=== PATIENT | male | born 1950 | race Caucasian/White ===

== ENCOUNTER 2016-10-02 11:22 | Emergency (ER) | payer MEDICARE ==
[2016-10-02 11:53] VITALS: PULSE 60
--- NOTE | 2016-10-02 11:59 | ERPHSYRPT ---
- History of Present Illness Time Seen by Provider: 10/02/16 11:47 Source: patient Exam Limitations: no limitations Physician History: The patient is a 66-year-old male with his complaining of increasing left ear pain for one month. He was recently put on doxycycline without resolution. This morning his left ear is hurting intensely but after removing white material with a Q-tip, it is feeling somewhat better. His past medical history is significant for hypertension, allergies, GERD, and diabetes. Timing/Duration: gradual onset Severity: severe ENT Location: ear (L) Prearrival Treatment: prescription meds Modifying Factors: Improves With: nothing Associated Symptoms: ear pain (L) Allergies/Adverse Reactions: azithromycin [From Zithromax] Adverse Reaction (Verified 04/01/16 11:37) chlorzoxazone Adverse Reaction (Verified 04/01/16 11:37) clarithromycin [From Biaxin] Adverse Reaction (Verified 04/01/16 11:37) diclofenac sodium [From Arthrotec] Adverse Reaction (Verified 04/01/16 11:37) ezetimibe [From Vytorin] Adverse Reaction (Verified 04/01/16 11:37) fluticasone propionate [From Advair Diskus] Adverse Reaction (Verified 04/01/16 11:37) misoprostol [From Arthrotec] Adverse Reaction (Verified 04/01/16 11:37) oxycodone Adverse Reaction (Verified 04/01/16 11:37) Penicillins Adverse Reaction (Verified 04/01/16 11:37) pravastatin sodium [From Pravachol] Adverse Reaction (Verified 04/01/16 11:37) rosuvastatin calcium [From Crestor] Adverse Reaction (Verified 04/01/16 11:37) salmeterol xinafoate [From Advair Diskus] Adverse Reaction (Verified 04/01/16 11 :37) simvastatin [From Vytorin] Adverse Reaction (Verified 04/01/16 11:37) Home Medications: Aspirin 81 gm Chew [Baby Aspirin 81 mg Chew] 81 mg PO DAILY 07/02/15 [ History] Famotidine 20 mg [Pepcid 20 MG] 20 mg PO DAILY 07/02/15 [History] Gabapentin [Neurontin] 300 mg PO QID 07/02/15 [History] Glimepiride 4 mg [Amaryl 4 mg] 4 mg PO BID 07/02/15 [History] Levomefolate/B6/B12/Algal Oil [Metanx Capsule] 1 each PO DAILY 07/02/15 [History ] Loratadine 10 mg [Claritin 10 mg] 10 mg PO DAILY 07/02/15 [History] Metformin HCl 500 mg [Glucophage 500 MG] 500 mg PO BID 07/02/15 [History] Olmesartan/Hydrochlorothiazide [Benicar Hct 40-12.5 mg Tablet] 1 each PO DAILY 07/02/15 [History] Pioglitazone HCl [Actos] 45 mg PO DAILY 07/02/15 [History] Hx Tetanus, Diphtheria Vaccination/Date Given: Yes Hx Influenza Vaccination/Date Given: Yes Hx Pneumococcal Vaccination/Date Given: Yes - Review of Systems Constitutional: No Fever, No Chills Eyes: No Symptoms Ears, Nose, & Throat: Ear Pain Respiratory: No Cough, No Dyspnea Cardiac: No Chest Pain, No Edema, No Syncope Abdominal/Gastrointestinal: No Abdominal Pain, No Nausea, No Vomiting, No Diarrhea Genitourinary Symptoms: No Dysuria Musculoskeletal: No Back Pain, No Neck Pain Skin: No Rash Neurological: No Dizziness, No Focal Weakness, No Sensory Changes Psychological: No Symptoms Endocrine: No Symptoms Hematologic/Lymphatic: No Symptoms Immunological/Allergic: No Symptoms All Other Systems: Reviewed and Negative - Past Medical History Pertinent Past Medical History: Yes Neurological History: No Pertinent History ENT History: No Pertinent History Cardiac History: High Cholesterol, Hypertension, Other Respiratory History: Other Endocrine Medical History: Diabetes Type I Musculoskeletal History: Arthritis GI Medical History: Other History: Other Psycho-Social History: No Pertinent History Male Reproductive Disorders: No Pertinent History Other Medical History: kidney stones, acid reflux, - Past Surgical History Past Surgical History: Yes Neuro Surgical History: No Pertinent History Cardiac: No Pertinent History Respiratory: No Pertinent History Gastrointestinal: No Pertinent History Genitourinary: No Pertinent History Musculoskeletal: No Pertinent History Male Surgical History: No Pertinent History - Social History Smoking Status: Never smoker Exposure to second hand smoke: No Drug Use: none - Physical Exam General Appearance: no apparent distress, alert Ear Exam: left ear: TM red Nasal Exam: normal inspection Throat Exam: pharynx normal, moist mucus membranes, No tonsillar exudate Neck Exam: supple Cardiovascular/Respiratory Exam: normal breath sounds, regular rate/rhythm Abdominal Exam: non-tender, soft Neurologic Exam: alert, oriented x 3, sensation nml, No motor deficits Skin Exam: normal color, warm, dry SpO2 Interpretation: normal - Progress Progress: unchanged - Departure Time of Disposition: 12:02 Departure Disposition: Home Clinical Impression: Otitis media Condition: Stable Critical Care Time: No Additional Instructions: Your left ear has an infection. Stopped taking the doxycycline. Take Omnicef 300 mg twice a day for 10 days. Also take prednisone 1 mg daily for 10 days. If the condition persists, either follow-up with your family doctor or with your [facility] dean. Prescriptions: Cefdinir [Omnicef] 300 mg PO BID #20 capsule Prednisone 10 mg [Deltasone 10 mg] 1 mg PO UD #10 tablet
[2016-10-02 12:27] VITALS: BP 120/54; O2SAT 98
== END 2016-10-02 12:25 | disposition home or self-care (01) ==
LOC: ED 11:22
DX: H66.90 Otitis media, unspecified, unspecified ear (principal)
CPT/HCPCS: 99283

== ENCOUNTER 2018-06-01 09:17 | Day surgery (SDC) | payer MEDICARE ==
[2018-06-01] MEDS ORDERED: Xylocaine-Mpf 2% 5 Ml Vial IJ ONE (09:18)
[2018-06-01] MEDS ORDERED: Depo-Medrol 40 MG/ML IM ONE (09:18)
[2018-06-01] MEDS ORDERED: DIPRIVAN 200 MG/20 ML IV ONE (09:18)
[2018-06-01] MEDS ORDERED: LIDOCAINE HCL 2% 100 MG/5 ML IJ ONE (09:18)
[2018-06-01] MEDS ORDERED: Lactated Ringers 1,000 ML IV ONE (12:03)
--- NOTE | 2018-06-01 12:15 | XRAY ---
Indication: Bilateral L4-S1 DEEPALI. Intraoperative fluoroscopy was provided for 1 minute 35 seconds. 4 digital spot images submitted for interpretation demonstrates posterior spinal needle tips projecting over the expected course of the left and right L4-L5 nerve roots. Small amount of contrast injected for needle tip placement. Correlate with intraoperative findings/report.
--- NOTE | 2018-06-01 12:17 | XRAY ---
1 minute and 35 seconds fluoroscopy time in surgery for bilateral L4-S1 DEEPALI.
== END 2018-06-01 11:23 | disposition home or self-care (01) ==
LOC: SDC-PAIN 09:17
PROVIDERS: ATTEND Psychiatry & Neurology Pain Medicine
DX: M54.16 Radiculopathy, lumbar region (principal); E11.9 Type 2 diabetes mellitus without complications; I10 Essential (primary) hypertension; M19.90 Unspecified osteoarthritis, unspecified site; Z79.899 Other long term (current) drug therapy
CPT/HCPCS: 64483; 64484; 72020; 77003; 82962; 99100; J1030; J2704; Q9966

== ENCOUNTER 2018-07-06 09:18 | Day surgery (SDC) | payer MEDICARE ==
[2018-07-06] MEDS ORDERED: DIPRIVAN 200 MG/20 ML IV ONE (09:19)
[2018-07-06] MEDS ORDERED: Marcaine 0.5% SDV 10 ML IJ ONE (09:19)
[2018-07-06] MEDS ORDERED: Ketamine HCl 50 MG/ML IV ONE (09:19)
[2018-07-06] MEDS ORDERED: Depo-Medrol 40 MG/ML IM ONE (09:19)
[2018-07-06] MEDS ORDERED: Xylocaine 1% Vial 30 ML PF IJ ONE (09:19)
--- NOTE | 2018-07-06 11:55 | XRAY ---
Indication: Left shoulder injection. Intraoperative fluoroscopy was provided for 18 seconds. Single digital spot image submitted for interpretation demonstrates needle tip projecting over the left superior glenohumeral joint. Small amount of contrast injected for needle tip placement. Correlate with intraoperative findings/report.
--- NOTE | 2018-07-06 11:58 | XRAY ---
18 seconds fluoroscopy time in surgery for left shoulder injection.
[2018-07-06] MEDS ORDERED: Lactated Ringers 1,000 ML IV ONE (14:27)
== END 2018-07-06 11:05 | disposition home or self-care (01) ==
LOC: SDC-PAIN 09:18
PROVIDERS: ATTEND Psychiatry & Neurology Pain Medicine
DX: M19.019 Primary osteoarthritis, unspecified shoulder (principal); I10 Essential (primary) hypertension; E11.9 Type 2 diabetes mellitus without complications; Z79.899 Other long term (current) drug therapy
CPT/HCPCS: 73030; 77002; 99100; J1030; J2001; J2704

== ENCOUNTER 2018-07-27 07:56 | Day surgery (SDC) | payer MEDICARE ==
[2018-07-27] MEDS ORDERED: Ketamine HCl 50 MG/ML IJ ONE (07:57)
[2018-07-27] MEDS ORDERED: Marcaine 0.5% SDV 10 ML IJ ONE (07:57)
[2018-07-27] MEDS ORDERED: Depo-Medrol 40 MG/ML IM ONE (07:57)
[2018-07-27] MEDS ORDERED: Sodium Chloride 0.9(Preservative Free) 10 ML IJ ONE (07:57)
[2018-07-27] MEDS ORDERED: DIPRIVAN 200 MG/20 ML IV ONE ×2 (07:57)
--- NOTE | 2018-07-27 10:25 | XRAY ---
Indication: Right L3-L5 DEEPALI. Intraoperative fluoroscopy was provided for 20 seconds. 2 digital spot images submitted for interpretation demonstrates posterior needle tips in the expected course of the right L3 and L4 nerve roots. Small amount of contrast injected for needle tip placement. Correlate with intraoperative findings/report.
--- NOTE | 2018-07-27 10:27 | XRAY ---
15 seconds fluoroscopy time in surgery for right S-I joint injection.
--- NOTE | 2018-07-27 10:27 | XRAY ---
20 seconds fluoroscopy time in surgery for right L3-L5 DEEPALI.
--- NOTE | 2018-07-27 10:28 | XRAY ---
Indication: Right SI joint injection. Intraoperative fluoroscopy was provided for 15 seconds. 2 digital spot images submitted for interpretation demonstrates posterior needle tip projecting over the inferior right SI joint. Correlate with intraoperative findings/report.
[2018-07-27] MEDS ORDERED: Lactated Ringers 1,000 ML IV ONE (18:01)
== END 2018-07-27 09:55 | disposition home or self-care (01) ==
LOC: SDC-PAIN 07:56
PROVIDERS: ATTEND Psychiatry & Neurology Pain Medicine
DX: M54.16 Radiculopathy, lumbar region (principal); M46.1 Sacroiliitis, not elsewhere classified; M53.3 Sacrococcygeal disorders, not elsewhere classified; M19.019 Primary osteoarthritis, unspecified shoulder; Z79.899 Other long term (current) drug therapy; I10 Essential (primary) hypertension; E11.9 Type 2 diabetes mellitus without complications; K20.9 Esophagitis, unspecified; K44.9 Diaphragmatic hernia without obstruction or gangrene
CPT/HCPCS: 64483; 64484; 72020; 77002; 77003; 82962; G0260; 27096; 99100; J1030; J2704; Q9966

== ENCOUNTER 2018-11-23 09:33 | Day surgery (SDC) | payer MEDICARE ==
[2018-11-23] MEDS ORDERED: Xylocaine 1% Vial 30 ML PF IJ ONE (09:34)
[2018-11-23] MEDS ORDERED: Sodium Chloride 0.9(Preservative Free) 10 ML IJ ONE (09:34)
[2018-11-23] MEDS ORDERED: Depo-Medrol 40 MG/ML IM ONE (09:34)
[2018-11-23] MEDS ORDERED: Ketamine HCl 50 MG/ML ONE (10:56)
[2018-11-23] MEDS ORDERED: DIPRIVAN 200 MG/20 ML IV ONE (10:56)
[2018-11-23] MEDS ORDERED: Lactated Ringers 1,000 ML IV ONE (11:16)
--- NOTE | 2018-11-23 15:14 | XRAY ---
17 seconds fluoroscopy time in surgery for L5-S1 lumbar DEEPALI.
--- NOTE | 2018-11-25 10:24 | XRAY ---
Indication: L5-S1 DEEPALI. Intraoperative fluoroscopy was provided for 17 seconds. 2 digital spot images submitted for interpretation demonstrates midline needle tip just posterior to the L5-S1 interspace. Correlate with intraoperative findings/report.
== END 2018-11-23 11:25 | disposition home or self-care (01) ==
LOC: SDC-PAIN 09:33
PROVIDERS: ATTEND Psychiatry & Neurology Pain Medicine
DX: M54.16 Radiculopathy, lumbar region (principal); E11.9 Type 2 diabetes mellitus without complications; I10 Essential (primary) hypertension; K20.9 Esophagitis, unspecified; K44.9 Diaphragmatic hernia without obstruction or gangrene; Z79.899 Other long term (current) drug therapy
CPT/HCPCS: 62323; 72100; 77003; 82962; J1030; J2001; J2704; Q9966

== ENCOUNTER 2018-12-21 08:06 | Day surgery (SDC) | payer MEDICARE ==
[2018-12-21] MEDS ORDERED: Sodium Chloride 0.9(Preservative Free) 10 ML IJ ONE (08:07)
[2018-12-21] MEDS ORDERED: Depo-Medrol 40 MG/ML IM ONE (08:07)
[2018-12-21] MEDS ORDERED: Ketamine HCl 50 MG/ML ONE (09:32)
[2018-12-21] MEDS ORDERED: DIPRIVAN 200 MG/20 ML IV ONE (09:32)
--- NOTE | 2018-12-21 11:39 | XRAY ---
Indication: Bilateral L3-L5 DEEPALI. Intraoperative fluoroscopy was provided for 1 minute 6 seconds. 6 digital spot images submitted for interpretation demonstrates posterior needle tips projecting over the expected course of the left and right L3-L4 and left L5 nerve root. Small amount of contrast injected for needle tip placement. Correlate with intraoperative findings/report.
--- NOTE | 2018-12-21 13:04 | XRAY ---
1 minute and 6 seconds fluoroscopy time in surgery for bilateral L3-L5 DEEPALI.
[2018-12-21] MEDS ORDERED: Lactated Ringers 1,000 ML IV ONE (13:20)
== END 2018-12-21 10:07 | disposition home or self-care (01) ==
LOC: SDC-PAIN 08:06
PROVIDERS: ATTEND Psychiatry & Neurology Pain Medicine
DX: M54.16 Radiculopathy, lumbar region (principal); E11.9 Type 2 diabetes mellitus without complications; I10 Essential (primary) hypertension; K44.9 Diaphragmatic hernia without obstruction or gangrene; K20.9 Esophagitis, unspecified; Z79.899 Other long term (current) drug therapy
CPT/HCPCS: 64483; 64484; 72100; 77003; 82962; 99100; J1030; J2704; Q9966

== ENCOUNTER 2019-02-15 07:58 | Day surgery (SDC) | payer MEDICARE ==
[2019-02-15] MEDS ORDERED: Depo-Medrol 40 MG/ML IM ONE (07:59)
[2019-02-15] MEDS ORDERED: Sodium Chloride 0.9(Preservative Free) 10 ML IJ ONE (07:59)
[2019-02-15] MEDS ORDERED: DIPRIVAN 200 MG/20 ML IV ONE (10:06)
[2019-02-15] MEDS ORDERED: Ketamine HCl 50 MG/ML ONE (10:06)
--- NOTE | 2019-02-15 11:33 | XRAY ---
Indication: Right L3-L5 DEEPALI. Intraoperative fluoroscopy was provided for 26 seconds. 4 digital spot images submitted for interpretation demonstrates posterior needle tips projecting over the expected course of the right L3 and L4 nerve roots. Small amount of contrast injected for needle tip placement. Correlate with intraoperative findings/report.
--- NOTE | 2019-02-15 12:30 | XRAY ---
26 seconds fluoroscopy time in surgery for right L3-L5 DEEPALI.
[2019-02-15] MEDS ORDERED: Lactated Ringers 1,000 ML IV ONE (14:32)
== END 2019-02-15 10:38 | disposition home or self-care (01) ==
LOC: SDC-PAIN 07:58
PROVIDERS: ATTEND Psychiatry & Neurology Pain Medicine
DX: M54.16 Radiculopathy, lumbar region (principal); E11.9 Type 2 diabetes mellitus without complications; I10 Essential (primary) hypertension; K44.9 Diaphragmatic hernia without obstruction or gangrene; K20.9 Esophagitis, unspecified; Z79.899 Other long term (current) drug therapy
CPT/HCPCS: 64483; 64484; 72100; 77003; 82962; 99100; J1030; J2704; Q9966

== ENCOUNTER 2019-10-25 08:13 | Day surgery (SDC) | payer MEDICARE ==
[~2019-10-25 08:13] MED LIST: DIPRIVAN 200 MG/20 ML IV ONE; Ketamine HCl 50 MG/ML ONE
[2019-10-25] MEDS ORDERED: Depo-Medrol 40 MG/ML IM ONE (08:14)
[2019-10-25] MEDS ORDERED: Xylocaine 1% Vial 30 ML PF IJ ONE (08:14)
[2019-10-25] MEDS ORDERED: Sodium Chloride 0.9(Preservative Free) 10 ML IJ ONE (08:14)
--- NOTE | 2019-10-25 10:21 | XRAY ---
Indication: Lumbar DEEPALI. Intraoperative fluoroscopy was provided for 17 seconds. 2 digital spot images submitted for interpretation demonstrates midline posterior needle tip just posterior to the lumbosacral junction interspace. Small amount of contrast injected for needle tip placement. Correlate with intraoperative findings/report.
--- NOTE | 2019-10-25 10:33 | XRAY ---
17 seconds fluoroscopy time in surgery for lumbar DEEPALI.
[2019-10-25] MEDS ORDERED: Lactated Ringers 1,000 ML IV ONE (16:34)
== END 2019-10-25 10:15 | disposition home or self-care (01) ==
LOC: SDC-PAIN 08:13
PROVIDERS: ATTEND Psychiatry & Neurology Pain Medicine
DX: M54.16 Radiculopathy, lumbar region (principal); E11.9 Type 2 diabetes mellitus without complications; I10 Essential (primary) hypertension; K44.9 Diaphragmatic hernia without obstruction or gangrene; K20.9 Esophagitis, unspecified; Z79.899 Other long term (current) drug therapy
CPT/HCPCS: 62323; 72100; 77003; 82962; J1030; J2001; J2704; Q9966

== ENCOUNTER 2019-11-01 08:41 | Day surgery (SDC) | payer MEDICARE ==
[2019-11-01] MEDS ORDERED: Marcaine 0.5% SDV 10 ML IJ ONE (08:42)
[2019-11-01] MEDS ORDERED: Depo-Medrol 40 MG/ML IM ONE (08:42)
[2019-11-01] MEDS ORDERED: Ketamine HCl 50 MG/ML ONE (09:53)
[2019-11-01] MEDS ORDERED: DIPRIVAN 200 MG/20 ML IV ONE (09:53)
--- NOTE | 2019-11-01 11:08 | XRAY ---
Indication: Right shoulder injection. Intraoperative fluoroscopy was provided for 10 seconds. Single digital spot image submitted for interpretation demonstrates anterior needle tip projecting right glenohumeral joint superiorly. Small amount of contrast injected for needle tip placement. Correlate with intraoperative findings/report.
--- NOTE | 2019-11-01 11:49 | XRAY ---
10 seconds of fluoroscopy was used in surgery for a right intra-articular shoulder injection.
[2019-11-01] MEDS ORDERED: Lactated Ringers 1,000 ML IV ONE (15:55)
== END 2019-11-01 10:14 | disposition home or self-care (01) ==
LOC: SDC-PAIN 08:41
PROVIDERS: ATTEND Psychiatry & Neurology Pain Medicine
DX: M19.011 Primary osteoarthritis, right shoulder (principal); E11.9 Type 2 diabetes mellitus without complications; I10 Essential (primary) hypertension; K20.9 Esophagitis, unspecified; K44.9 Diaphragmatic hernia without obstruction or gangrene; M19.90 Unspecified osteoarthritis, unspecified site; Z79.899 Other long term (current) drug therapy
CPT/HCPCS: 20610; 73030; 77002; 82962; J1030; J2704; Q9966

== ENCOUNTER 2019-11-22 09:00 | Day surgery (SDC) | payer MEDICARE ==
[2019-11-22] MEDS ORDERED: Sodium Chloride 0.9(Preservative Free) 10 ML IJ ONE (09:01)
[2019-11-22] MEDS ORDERED: Depo-Medrol 40 MG/ML IM ONE (09:01)
[2019-11-22] MEDS ORDERED: DIPRIVAN 200 MG/20 ML IV ONE (09:58)
[2019-11-22] MEDS ORDERED: Ketamine HCl 50 MG/ML ONE (09:58)
--- NOTE | 2019-11-22 12:01 | XRAY ---
Indication: Right L4-S1 transforaminal DEEPALI. Intraoperative fluoroscopy was provided for 29 seconds. 4 digital spot images submitted for interpretation demonstrates posterior needle tips projecting over the expected course of the right L4 and L5 nerve roots. Small amount of contrast injected for needle tip placement. Correlate with intraoperative findings/report.
--- NOTE | 2019-11-22 12:14 | XRAY ---
29 seconds fluoroscopy time in surgery for right L4-S1 transforaminal DEEPALI.
[2019-11-22] MEDS ORDERED: Lactated Ringers 1,000 ML IV ONE (14:33)
== END 2019-11-22 10:28 | disposition home or self-care (01) ==
LOC: SDC-PAIN 09:00
PROVIDERS: ATTEND Psychiatry & Neurology Pain Medicine
DX: M54.16 Radiculopathy, lumbar region (principal); E11.9 Type 2 diabetes mellitus without complications; I10 Essential (primary) hypertension; K20.9 Esophagitis, unspecified; K44.9 Diaphragmatic hernia without obstruction or gangrene; Z79.899 Other long term (current) drug therapy
CPT/HCPCS: 64483; 64484; 72100; 77003; 82962; 99100; J1030; J2704; Q9966

== ENCOUNTER 2019-12-27 08:52 | Day surgery (SDC) | payer MEDICARE ==
[2019-12-27] MEDS ORDERED: Depo-Medrol 40 MG/ML IM ONE (08:53)
[2019-12-27] MEDS ORDERED: Sodium Chloride 0.9(Preservative Free) 10 ML IJ ONE (08:53)
[2019-12-27] MEDS ORDERED: Ketamine HCl 50 MG/ML ONE (10:30)
[2019-12-27] MEDS ORDERED: DIPRIVAN 200 MG/20 ML IV ONE (10:30)
[2019-12-27] MEDS ORDERED: TORAdol 30 mg Injection ONE (10:51)
--- NOTE | 2019-12-27 12:21 | XRAY ---
Indication: Left L4-S1 transforaminal DEEPALI. Intraoperative fluoroscopy was provided for 51 seconds. 3 digital spot images submitted for interpretation demonstrates posterior needle tips projecting over the expected course of the left L4 and L5 nerve roots. Small amount of contrast injected for needle tip placement. Correlate with intraoperative findings/report.
--- NOTE | 2019-12-27 12:35 | XRAY ---
51 seconds fluoroscopy time in surgery for left L4-S1 transforaminal DEEPALI.
[2019-12-27] MEDS ORDERED: Lactated Ringers 1,000 ML IV ONE (15:29)
== END 2019-12-27 11:05 | disposition home or self-care (01) ==
LOC: SDC-PAIN 08:52
PROVIDERS: ATTEND Psychiatry & Neurology Pain Medicine
DX: M54.16 Radiculopathy, lumbar region (principal); I10 Essential (primary) hypertension; E11.9 Type 2 diabetes mellitus without complications; K44.9 Diaphragmatic hernia without obstruction or gangrene; K20.9 Esophagitis, unspecified; Z79.899 Other long term (current) drug therapy
CPT/HCPCS: 64483; 64484; 72100; 77003; 82962; 99100; J1030; J1885; J2704; Q9966

== ENCOUNTER 2020-02-21 09:11 | Day surgery (SDC) | payer MEDICARE ==
[2020-02-21] MEDS ORDERED: Depo-Medrol 40 MG/ML IM ONE (09:12)
[2020-02-21] MEDS ORDERED: Sodium Chloride 0.9(Preservative Free) 10 ML IJ ONE (09:12)
--- NOTE | 2020-02-21 11:39 | XRAY ---
Indication: Right L3-L5 transforaminal DEEPALI. Intraoperative fluoroscopy was provided for 46 seconds. 4 digital spot images submitted for interpretation demonstrates posterior needle tips projecting over the expected right L3 and L4 nerve roots. Small amount of contrast injected for needle tip placement. Correlate with intraoperative findings/report.
--- NOTE | 2020-02-21 11:48 | XRAY ---
46 seconds fluoroscopy time in surgery for right L3-S1 transforaminal DEEPALI.
[2020-02-21] MEDS ORDERED: Lactated Ringers 1,000 ML IV ONE (16:48)
== END 2020-02-21 11:28 | disposition home or self-care (01) ==
LOC: SDC-PAIN 09:11
PROVIDERS: ATTEND Psychiatry & Neurology Pain Medicine
DX: M54.16 Radiculopathy, lumbar region (principal); E11.9 Type 2 diabetes mellitus without complications; I10 Essential (primary) hypertension; K44.9 Diaphragmatic hernia without obstruction or gangrene; K20.90 Esophagitis, unspecified without bleeding; Z79.899 Other long term (current) drug therapy
CPT/HCPCS: 64483; 64484; 72100; 77003; 82947; 82962; 99100; J1030; J2704; Q9966

== ENCOUNTER 2020-03-13 08:45 | Day surgery (SDC) | payer MEDICARE ==
[2020-03-13] MEDS ORDERED: Depo-Medrol 40 MG/ML IM ONE (08:46)
[2020-03-13] MEDS ORDERED: Sodium Chloride 0.9(Preservative Free) 10 ML IJ ONE (08:46)
[2020-03-13] MEDS ORDERED: DIPRIVAN 200 MG/20 ML IV ONE (10:18)
[2020-03-13] MEDS ORDERED: Ketamine HCl 50 MG/ML ONE (10:18)
--- NOTE | 2020-03-13 11:13 | XRAY ---
Indication: Right L3-L5 transforaminal DEEPALI. Intraoperative fluoroscopy was provided for 49 seconds. 4 digital spot images submitted for interpretation demonstrates posterior needle tips projecting over the expected right L3 and L4 nerve roots. Small amount of contrast injected for needle tip placement. Correlate with intraoperative findings/report.
--- NOTE | 2020-03-13 11:17 | XRAY ---
49 seconds fluoroscopy time in surgery for right L3-L5 transforaminal DEEPALI.
[2020-03-13] MEDS ORDERED: Lactated Ringers 1,000 ML IV ONE (15:41)
== END 2020-03-13 10:50 | disposition home or self-care (01) ==
LOC: SDC-PAIN 08:45
PROVIDERS: ATTEND Psychiatry & Neurology Pain Medicine
DX: M54.16 Radiculopathy, lumbar region (principal); E11.9 Type 2 diabetes mellitus without complications; I10 Essential (primary) hypertension; K44.9 Diaphragmatic hernia without obstruction or gangrene; K20.90 Esophagitis, unspecified without bleeding; Z79.899 Other long term (current) drug therapy
CPT/HCPCS: 64483; 64484; 72100; 77003; 82947; 82962; 99100; J1030; J2704; Q9966

== ENCOUNTER 2020-05-08 08:53 | Day surgery (SDC) | payer MEDICARE ==
[2020-05-08] MEDS ORDERED: Xylocaine 1% Vial 30 ML PF IJ ONE (08:54)
[2020-05-08] MEDS ORDERED: Sensorcaine 0.25% 10 ML IJ ONE (08:54)
[2020-05-08] MEDS ORDERED: Ketamine HCl 50 MG/ML ONE (10:52)
[2020-05-08] MEDS ORDERED: DIPRIVAN 200 MG/20 ML IV ONE (10:52)
--- NOTE | 2020-05-08 12:20 | XRAY ---
51 seconds fluoroscopy time in surgery for left lumbar sympathetic nerve block.
--- NOTE | 2020-05-08 12:22 | XRAY ---
Indication: Left sympathetic nerve block. Intraoperative fluoroscopy was provided for 51 seconds. 5 digital spot images submitted for interpretation demonstrates left posterior needle tip projecting just anterior to a mid lumbar segment, probably L2. Small amount of contrast injected for needle placement. Correlate with intraoperative findings/report.
[2020-05-08] MEDS ORDERED: Lactated Ringers 1,000 ML IV ONE (15:27)
== END 2020-05-08 11:30 | disposition home or self-care (01) ==
LOC: SDC-PAIN 08:53
PROVIDERS: ATTEND Psychiatry & Neurology Pain Medicine
DX: G90.529 Complex regional pain syndrome I of unspecified lower limb (principal); I10 Essential (primary) hypertension; E11.9 Type 2 diabetes mellitus without complications; Z79.899 Other long term (current) drug therapy
CPT/HCPCS: 72100; 77002; 82947; J2001; J2704

== ENCOUNTER 2020-06-05 08:51 | Day surgery (SDC) | payer MEDICARE ==
[2020-06-05] MEDS ORDERED: Depo-Medrol 40 MG/ML IM ONE ×2 (08:52)
[2020-06-05] MEDS ORDERED: BUPIVACAINE 0.5% VIAL IJ ONE ×2 (08:52)
[2020-06-05] MEDS ORDERED: DIPRIVAN 200 MG/20 ML IV ONE (10:03)
[2020-06-05] MEDS ORDERED: Ketamine HCl 50 MG/ML ONE (10:03)
--- NOTE | 2020-06-05 12:54 | XRAY ---
Indication: Bilateral SI joint injection. Intraoperative fluoroscopy was provided for 23 seconds. 4 digital spot images submitted for interpretation demonstrates posterior needle tip projecting over the inferior left and right SI joint. Correlate with intraoperative findings/report.
--- NOTE | 2020-06-05 12:56 | XRAY ---
23 seconds fluoroscopy time in surgery for bilateral injections of the SI joints.
[2020-06-05] MEDS ORDERED: Lactated Ringers 1,000 ML IV ONE (14:04)
== END 2020-06-05 10:53 | disposition home or self-care (01) ==
LOC: SDC-PAIN 08:51
PROVIDERS: ATTEND Psychiatry & Neurology Pain Medicine
DX: M46.1 Sacroiliitis, not elsewhere classified (principal); E11.9 Type 2 diabetes mellitus without complications; I10 Essential (primary) hypertension; K20.90 Esophagitis, unspecified without bleeding; K44.9 Diaphragmatic hernia without obstruction or gangrene; Z79.899 Other long term (current) drug therapy
CPT/HCPCS: 27096; 72202; 77002; 82947; G0260; 99100; J1030; J2704

== ENCOUNTER 2020-06-26 08:44 | Day surgery (SDC) | payer MEDICARE ==
[2020-06-26] MEDS ORDERED: Xylocaine 1% Vial 30 ML PF IJ ONE (08:45)
[2020-06-26] MEDS ORDERED: Sensorcaine 0.25% 10 ML IJ ONE (08:45)
[2020-06-26] MEDS ORDERED: DIPRIVAN 200 MG/20 ML IV ONE (10:15)
[2020-06-26] MEDS ORDERED: Ketamine HCl 50 MG/ML ONE (10:15)
--- NOTE | 2020-06-26 10:58 | XRAY ---
Indication: Right lumbar sympathetic nerve block. Intraoperative fluoroscopy provided for 1 minute 29 seconds. 4 digital spot images submitted for interpretation demonstrates right posterior needle tip projecting just anterior to mid lumbar segment, probably L3. Small amount of contrast injected for needle tip placement. Correlate with intraoperative findings/report.
--- NOTE | 2020-06-26 12:01 | XRAY ---
1 minute and 29 seconds fluoroscopy time in surgery for right lumber sympathetic nerve block.
[2020-06-26] MEDS ORDERED: Lactated Ringers 1,000 ML IV ONE (14:58)
== END 2020-06-26 10:54 | disposition home or self-care (01) ==
LOC: SDC-PAIN 08:44
PROVIDERS: ATTEND Psychiatry & Neurology Pain Medicine
DX: G90.529 Complex regional pain syndrome I of unspecified lower limb (principal); I10 Essential (primary) hypertension; E11.9 Type 2 diabetes mellitus without complications; N20.0 Calculus of kidney; K20.90 Esophagitis, unspecified without bleeding; K44.9 Diaphragmatic hernia without obstruction or gangrene; M19.90 Unspecified osteoarthritis, unspecified site; Z79.899 Other long term (current) drug therapy
CPT/HCPCS: 64520; 72100; 77002; 77003; 82947; 99100; J2001; J2704; Q9966

== ENCOUNTER 2020-07-10 09:31 | Day surgery (SDC) | payer MEDICARE ==
[2020-07-10] MEDS ORDERED: Lactated Ringers 1,000 ML IV ONE (09:32)
[2020-07-10] MEDS ORDERED: Depo-Medrol 40 MG/ML IM ONE (09:32)
[2020-07-10] MEDS ORDERED: Sodium Chloride 0.9(Preservative Free) 10 ML IJ ONE (09:32)
[2020-07-10] MEDS ORDERED: Ketamine HCl 50 MG/ML ONE (10:59)
[2020-07-10] MEDS ORDERED: DIPRIVAN 200 MG/20 ML IV ONE (10:59)
[2020-07-10] MEDS ORDERED: TORAdol 30 mg Injection ONE (11:21)
[2020-07-10] MEDS ORDERED: TORAdol 30 mg Injection IM ONE (11:45)
--- NOTE | 2020-07-10 12:17 | XRAY ---
Indication: Right L4-S1 transforaminal DEEPALI. Intraoperative fluoroscopy provided for 1 minute 2 seconds. 5 digital spot images submitted for interpretation demonstrate posterior needle tips projecting over the expected right L4 and L5 nerve roots. Correlate with intraoperative findings/report.
--- NOTE | 2020-07-10 12:29 | XRAY ---
1 minute and 2 seconds fluoroscopy time in surgery for right L4-S1 tranforaminal DEEPALI.
== END 2020-07-10 11:37 | disposition home or self-care (01) ==
LOC: SDC-PAIN 09:31
PROVIDERS: ATTEND Psychiatry & Neurology Pain Medicine
DX: M54.16 Radiculopathy, lumbar region (principal); E11.9 Type 2 diabetes mellitus without complications; I10 Essential (primary) hypertension; K20.90 Esophagitis, unspecified without bleeding; K44.9 Diaphragmatic hernia without obstruction or gangrene; Z79.899 Other long term (current) drug therapy
CPT/HCPCS: 64483; 64484; 72100; 77003; 82947; J1030; J1885; J2704; Q9966

== ENCOUNTER 2020-07-31 10:01 | Day surgery (SDC) | payer MEDICARE ==
[2020-07-31] MEDS ORDERED: Sodium Chloride 0.9(Preservative Free) 10 ML IJ ONE (10:02)
[2020-07-31] MEDS ORDERED: Depo-Medrol 40 MG/ML IM ONE (10:02)
[2020-07-31] MEDS ORDERED: DIPRIVAN 200 MG/20 ML IV ONE (11:30)
[2020-07-31] MEDS ORDERED: Ketamine HCl 50 MG/ML ONE (11:30)
--- NOTE | 2020-07-31 12:39 | XRAY ---
Indication: Right L3-L5 transforaminal DEEPALI. Intraoperative fluoroscopy was provided for 34 seconds. 5 digital spot image submitted for interpretation demonstrates posterior needle tips projecting over the expected course of the right L3 and L4 nerve roots. Small amount of contrast injected for needle tip placement. Correlate with intraoperative findings/report.
--- NOTE | 2020-07-31 13:22 | XRAY ---
34 seconds fluoroscopy time in surgery for right L3-L5 transforaminal DEEPALI.
[2020-07-31] MEDS ORDERED: Lactated Ringers 1,000 ML IV ONE (13:51)
== END 2020-07-31 11:56 | disposition home or self-care (01) ==
LOC: SDC-PAIN 10:01
PROVIDERS: ATTEND Psychiatry & Neurology Pain Medicine
DX: M54.16 Radiculopathy, lumbar region (principal); E11.9 Type 2 diabetes mellitus without complications; I10 Essential (primary) hypertension; K20.90 Esophagitis, unspecified without bleeding; K44.9 Diaphragmatic hernia without obstruction or gangrene; Z79.899 Other long term (current) drug therapy
CPT/HCPCS: 64483; 64484; 72100; 77003; 82947; J1030; J2704; Q9966

== ENCOUNTER 2020-08-21 09:09 | Day surgery (SDC) | payer MEDICARE ==
[2020-08-21] MEDS ORDERED: Depo-Medrol 40 MG/ML IM ONE (09:10)
[2020-08-21] MEDS ORDERED: Sodium Chloride 0.9(Preservative Free) 10 ML IJ ONE (09:10)
[2020-08-21] MEDS ORDERED: DIPRIVAN 200 MG/20 ML IV ONE (09:58)
--- NOTE | 2020-08-21 16:22 | XRAY ---
1 minute and 4 seconds fluoroscopy time in surgery for right L3-L5 transforaminal DEEPALI.
[2020-08-21] MEDS ORDERED: Lactated Ringers 1,000 ML IV ONE (16:39)
--- NOTE | 2020-08-22 21:42 | XRAY ---
Indication: Right L3-L5 transforaminal DEEPALI. Intraoperative fluoroscopy was provided for 1 minute, 4 seconds. 6 digital spot images submitted for interpretation demonstrate posterior needle tips projected over the expected course of the right L3 and L4 nerve roots. A small amount of contrast has been injected for needle tip placement. Correlate with intraoperative findings/report.
== END 2020-08-21 10:41 | disposition home or self-care (01) ==
LOC: SDC-PAIN 09:09
PROVIDERS: ATTEND Psychiatry & Neurology Pain Medicine
DX: M54.16 Radiculopathy, lumbar region (principal); E11.9 Type 2 diabetes mellitus without complications; I10 Essential (primary) hypertension; K20.90 Esophagitis, unspecified without bleeding; K44.9 Diaphragmatic hernia without obstruction or gangrene; Z79.899 Other long term (current) drug therapy
CPT/HCPCS: 64483; 64484; 72100; 77003; 82947; J1030; J2704; Q9966

== ENCOUNTER 2020-09-04 07:52 | Day surgery (SDC) | payer MEDICARE ==
[2020-09-04] MEDS ORDERED: Sodium Chloride 0.9(Preservative Free) 10 ML IJ ONE (07:53)
[2020-09-04] MEDS ORDERED: Depo-Medrol 40 MG/ML IM ONE (07:53)
[2020-09-04] MEDS ORDERED: DIPRIVAN 200 MG/20 ML IV ONE (09:06)
[2020-09-04] MEDS ORDERED: Lactated Ringers 1,000 ML IV ONE (16:30)
--- NOTE | 2020-09-04 17:39 | XRAY ---
26 seconds fluoroscopy time in surgery for left L4-S1 transforaminal DEEPALI.
== END 2020-09-04 09:37 | disposition home or self-care (01) ==
LOC: SDC-PAIN 07:52
PROVIDERS: ATTEND Psychiatry & Neurology Pain Medicine
DX: M54.16 Radiculopathy, lumbar region (principal); E11.9 Type 2 diabetes mellitus without complications; I10 Essential (primary) hypertension; K44.9 Diaphragmatic hernia without obstruction or gangrene; K20.90 Esophagitis, unspecified without bleeding; Z79.899 Other long term (current) drug therapy
CPT/HCPCS: 64483; 64484; 72100; 77002; 82947; J1030; J2704; Q9966

== ENCOUNTER 2020-09-25 09:02 | Day surgery (SDC) | payer MEDICARE ==
[2020-09-25] MEDS ORDERED: Depo-Medrol 40 MG/ML IM ONE (09:03)
[2020-09-25] MEDS ORDERED: Sodium Chloride 0.9(Preservative Free) 10 ML IJ ONE (09:03)
[2020-09-25] MEDS ORDERED: DIPRIVAN 200 MG/20 ML IV ONE (10:02)
--- NOTE | 2020-09-25 12:18 | XRAY ---
19 seconds fluoroscopy time in surgery for left L3-L5 transforaminal DEEPALI.
--- NOTE | 2020-09-25 12:20 | XRAY ---
Indication: Left L3-L5 transforaminal DEEPALI. Intraoperative fluoroscopy provided for 19 seconds. 4 digital spot images submitted for interpretation demonstrates posterior needle tips projecting over the expected left L3 and L4 nerve roots. Small amount of contrast injected for needle tip placement. Correlate with intraoperative findings/report.
[2020-09-25] MEDS ORDERED: Lactated Ringers 1,000 ML IV ONE (15:54)
== END 2020-09-25 10:41 | disposition home or self-care (01) ==
LOC: SDC-PAIN 09:02
PROVIDERS: ATTEND Psychiatry & Neurology Pain Medicine
DX: M54.16 Radiculopathy, lumbar region (principal); I10 Essential (primary) hypertension; E11.9 Type 2 diabetes mellitus without complications; I73.9 Peripheral vascular disease, unspecified; K20.90 Esophagitis, unspecified without bleeding; Z79.899 Other long term (current) drug therapy
CPT/HCPCS: 64483; 64484; 72100; 77003; 82947; J1030; J2704; Q9966

== ENCOUNTER 2020-11-27 10:13 | Day surgery (SDC) | payer MEDICARE ==
[2020-11-27] MEDS ORDERED: Depo-Medrol 40 MG/ML IM ONE (10:14)
[2020-11-27] MEDS ORDERED: Sodium Chloride 0.9(Preservative Free) 10 ML IJ ONE (10:14)
[2020-11-27] MEDS ORDERED: DIPRIVAN 200 MG/20 ML IV ONE (11:52)
[2020-11-27] MEDS ORDERED: Ketamine HCl 50 MG/ML ONE (11:52)
[2020-11-27] MEDS ORDERED: TORAdol 30 mg Injection ONE (12:11)
[2020-11-27] MEDS ORDERED: Lactated Ringers 1,000 ML IV ONE (15:54)
--- NOTE | 2020-11-28 12:03 | XRAY ---
53 seconds of fluoroscopy was used in surgery for a right L3-L5 transforaminal DEEPALI.
--- NOTE | 2020-12-01 00:01 | XRAY ---
Indication: Right L3-L5 transforaminal DEEPALI. Intraoperative fluoroscopy was provided for 53 seconds. 2 digital spot images submitted for interpretation demonstrate posterior needle tips projected over the expected course of the right L3 and L4 nerve roots. A small amount of contrast has been injected for needle tip placement. Correlate with intraoperative findings/report.
== END 2020-11-27 12:23 | disposition home or self-care (01) ==
LOC: SDC-PAIN 10:13
PROVIDERS: ATTEND Psychiatry & Neurology Pain Medicine
DX: M54.16 Radiculopathy, lumbar region (principal); E11.9 Type 2 diabetes mellitus without complications; Z79.899 Other long term (current) drug therapy
CPT/HCPCS: 64483; 64484; 72100; 77003; 82947; J1030; J1885; J2704; Q9966

== ENCOUNTER 2021-02-19 09:54 | Day surgery (SDC) | payer MEDICARE ==
[2021-02-19] MEDS ORDERED: Sodium Chloride 0.9(Preservative Free) 10 ML IJ ONE (09:55)
[2021-02-19] MEDS ORDERED: Depo-Medrol 40 MG/ML IM ONE (09:55)
[2021-02-19] MEDS ORDERED: DIPRIVAN 200 MG/20 ML IV ONE (10:58)
--- NOTE | 2021-02-19 12:45 | XRAY ---
Indication: Left L3-L4 and L5-S1 transforaminal DEEPALI. Intraoperative fluoroscopy provided for 53 seconds. 4 digital spot image submitted for interpretation demonstrates posterior needle tips projecting over the expected left L3 and L5 nerve roots. Small amount of contrast injected for both needle tip placement. Correlate with intraoperative findings/report.
--- NOTE | 2021-02-19 13:38 | XRAY ---
53 seconds fluoroscopy time in surgery for left L3-L4 and L5-S1 transforaminal DEEPALI.
[2021-02-19] MEDS ORDERED: Lactated Ringers 1,000 ML IV ONE (17:25)
== END 2021-02-19 11:26 | disposition home or self-care (01) ==
LOC: SDC-PAIN 09:54
PROVIDERS: ATTEND Psychiatry & Neurology Pain Medicine
DX: M54.16 Radiculopathy, lumbar region (principal); I10 Essential (primary) hypertension; E11.9 Type 2 diabetes mellitus without complications; K20.90 Esophagitis, unspecified without bleeding; M19.90 Unspecified osteoarthritis, unspecified site; Z79.899 Other long term (current) drug therapy
CPT/HCPCS: 64483; 64484; 72100; 77003; 82947; J1030; J2704; Q9966

== ENCOUNTER 2021-06-25 09:02 | Day surgery (SDC) | payer MEDICARE ==
[2021-06-25] MEDS ORDERED: Sodium Chloride 0.9(Preservative Free) 10 ML IJ ONE (09:03)
[2021-06-25] MEDS ORDERED: Depo-Medrol 40 MG/ML IM ONE (09:03)
[2021-06-25] MEDS ORDERED: DIPRIVAN 200 MG/20 ML IV ONE (10:24)
[2021-06-25] MEDS ORDERED: Lactated Ringers 1,000 ML IV ONE (10:36)
--- NOTE | 2021-06-25 12:15 | XRAY ---
Indication: Left L3-L5 transforaminal DEEPALI. Intraoperative fluoroscopy provided for 39 seconds. 4 digital spot images submitted for interpretation demonstrates posterior needle tips projecting over the expected left L3 and L4 nerve roots. Small amount of contrast injected for needle tip placement. Correlate with intraoperative findings/report.
--- NOTE | 2021-06-25 12:21 | XRAY ---
39 seconds fluoroscopy time in surgery for left L3-L5 transforaminal DEEPALI.
== END 2021-06-25 10:53 | disposition home or self-care (01) ==
LOC: SDC-PAIN 09:02
PROVIDERS: ATTEND Psychiatry & Neurology Pain Medicine
DX: M54.16 Radiculopathy, lumbar region (principal); E11.9 Type 2 diabetes mellitus without complications; Z79.899 Other long term (current) drug therapy
CPT/HCPCS: 64483; 64484; 72100; 77003; 82947; J1030; J2704; Q9966

== ENCOUNTER 2021-07-16 08:40 | Day surgery (SDC) | payer MEDICARE ==
[2021-07-16] MEDS ORDERED: Depo-Medrol 40 MG/ML IM ONE (08:41)
[2021-07-16] MEDS ORDERED: Sodium Chloride 0.9(Preservative Free) 10 ML IJ ONE (08:41)
[2021-07-16] MEDS ORDERED: DIPRIVAN 200 MG/20 ML IV ONE (10:31)
--- NOTE | 2021-07-16 11:55 | XRAY ---
Indication: Right L3-L5 transforaminal DEEPALI. Intraoperative fluoroscopy provided for 27 seconds. 4 digital spot images submitted for interpretation demonstrates posterior needle tips projecting over expected right L3 and L4 nerve roots. Small amount of contrast injected for needle tip placement. Correlate with intraoperative findings/report.
[2021-07-16] MEDS ORDERED: Lactated Ringers 1,000 ML IV ONE (11:57)
--- NOTE | 2021-07-16 12:01 | XRAY ---
27 seconds of fluoroscopy was used in surgery for a right L3-L5 transforaminal DEEPALI.
== END 2021-07-16 10:55 | disposition home or self-care (01) ==
LOC: SDC-PAIN 08:40
PROVIDERS: ATTEND Psychiatry & Neurology Pain Medicine
DX: M54.16 Radiculopathy, lumbar region (principal); E11.9 Type 2 diabetes mellitus without complications; I10 Essential (primary) hypertension; Z79.899 Other long term (current) drug therapy
CPT/HCPCS: 64483; 64484; 72100; 77003; 82947; J1030; J2704; Q9966

== ENCOUNTER 2021-08-14 08:05 | Day surgery (SDC) | payer MEDICARE ==
[2021-08-14] MEDS ORDERED: Depo-Medrol 40 MG/ML IM ONE (08:06)
[2021-08-14] MEDS ORDERED: BUPIVACAINE 0.5% VIAL IJ ONE (08:06)
[2021-08-14] MEDS ORDERED: DIPRIVAN 200 MG/20 ML IV ONE (09:30)
[2021-08-14] MEDS ORDERED: Lactated Ringers 1,000 ML IV ONE (10:07)
--- NOTE | 2021-08-14 11:58 | XRAY ---
Indication: Bilateral SI joint injection Intraoperative fluoroscopy provided for 23 seconds. 4 digital spot image submitted for interpretation demonstrates posterior needle tip projecting over the inferior left and right SI joint. Correlate with intraoperative findings/report.
--- NOTE | 2021-08-14 12:12 | XRAY ---
23 seconds fluoroscopy time in surgery for injections of both SI joint.
== END 2021-08-14 10:00 | disposition home or self-care (01) ==
LOC: SDC-PAIN 08:05
PROVIDERS: ATTEND Psychiatry & Neurology Pain Medicine
DX: M46.1 Sacroiliitis, not elsewhere classified (principal); E11.9 Type 2 diabetes mellitus without complications; Z79.899 Other long term (current) drug therapy
CPT/HCPCS: 27096; 72202; 77002; 82947; G0260; 99100; J1030; J2704

== ENCOUNTER 2021-09-24 09:02 | Day surgery (SDC) | payer MEDICARE ==
[2021-09-24] MEDS ORDERED: LIDOCAINE HCL 2% 100 MG/5 ML IJ ONE (09:03)
[2021-09-24] MEDS ORDERED: Lactated Ringers 1,000 ML IV ONE (09:40)
[2021-09-24] MEDS ORDERED: DIPRIVAN 200 MG/20 ML IV ONE (10:01)
--- NOTE | 2021-09-24 11:36 | XRAY ---
Indication: Right C2-C4 MBB. Intraoperative fluoroscopy provided for 23 seconds. 2 digital spot image submitted for interpretation demonstrates posterior needle tips projecting over the expected right C2-C4 nerve roots. Correlate with intraoperative findings/report.
--- NOTE | 2021-09-24 12:35 | XRAY ---
23 seconds fluoroscopy time in surgery for right C2-C4 MBB.
== END 2021-09-24 10:35 | disposition home or self-care (01) ==
LOC: SDC-PAIN 09:02
PROVIDERS: ATTEND Psychiatry & Neurology Pain Medicine
DX: M47.812 Spondylosis without myelopathy or radiculopathy, cervical region (principal); E11.9 Type 2 diabetes mellitus without complications; Z79.899 Other long term (current) drug therapy
CPT/HCPCS: 64490; 64491; 72040; 77002; 82947; J2704

== ENCOUNTER 2021-10-22 08:50 | Day surgery (SDC) | payer MEDICARE ==
[2021-10-22] MEDS ORDERED: Depo-Medrol 40 MG/ML IM ONE (08:51)
[2021-10-22] MEDS ORDERED: Sodium Chloride 0.9(Preservative Free) 10 ML IJ ONE (08:51)
[2021-10-22] MEDS ORDERED: DIPRIVAN 200 MG/20 ML IV ONE (10:16)
[2021-10-22] MEDS ORDERED: MORPHINE SULFATE 2 MG INJ ONE (10:30)
[2021-10-22] MEDS ORDERED: Lactated Ringers 1,000 ML IV ONE (11:33)
--- NOTE | 2021-10-23 18:30 | XRAY ---
44 seconds fluoroscopy time in surgery for right L3-S1 transforaminal DEEPALI.
--- NOTE | 2021-10-24 20:29 | XRAY ---
Indication: Right L3-S1 Transforaminal DEEPALI. Intraoperative fluoroscopy provided for 44 seconds. 3 digital spot images submitted for interpretation demonstrates posterior needle tips projecting over the expected right L3 and L4 nerve roots. A small amount of contrast was injected for needle tip placement. Correlate with intraoperative findings/report.
== END 2021-10-22 10:40 | disposition home or self-care (01) ==
LOC: SDC-PAIN 08:50
PROVIDERS: ATTEND Psychiatry & Neurology Pain Medicine
DX: M54.16 Radiculopathy, lumbar region (principal); E11.9 Type 2 diabetes mellitus without complications; Z79.899 Other long term (current) drug therapy
CPT/HCPCS: 64483; 64484; 72100; 77003; 82947; J1030; J2270; J2704; Q9966

== ENCOUNTER 2021-10-23 10:51 | Emergency (ER) | payer MEDICARE ==
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
[2021-10-23] MEDS ORDERED: TORAdol 30 mg Injection IM ONE (13:03)
[2021-10-23] MEDS ORDERED: TORAdol 30 mg Injection ONE (13:04)
[2021-10-23 13:10] VITALS: BP 117/65; PULSE 77
[2021-10-23 15:54] VITALS: O2SAT 95
== END 2021-10-23 13:16 | disposition home or self-care (01) ==
LOC: ED 10:51
DX: S70.01XA Contusion of right hip, initial encounter (principal); S30.0XXA Contusion of lower back and pelvis, initial encounter; V89.2XXA Person injured in unspecified motor-vehicle accident, traffic, initial encounter; M25.551 Pain in right hip; R10.2 Pelvic and perineal pain; E78.5 Hyperlipidemia, unspecified; I10 Essential (primary) hypertension; E10.9 Type 1 diabetes mellitus without complications; Z79.84 Long term (current) use of oral hypoglycemic drugs; Z79.899 Other long term (current) drug therapy
CPT/HCPCS: 74176; 96372; 99283; J1885

== ENCOUNTER 2021-12-17 08:32 | Day surgery (SDC) | payer MEDICARE ==
[2021-12-17] MEDS ORDERED: DIPRIVAN 200 MG/20 ML IV ONE (09:44)
[2021-12-17] MEDS ORDERED: Lactated Ringers 1,000 ML IV ONE (10:59)
[2021-12-17] MEDS ORDERED: Sodium Chloride 0.9(Preservative Free) 10 ML IJ ONE (15:30)
[2021-12-17] MEDS ORDERED: Depo-Medrol 40 MG/ML IM ONE (15:30)
--- NOTE | 2021-12-17 17:31 | XRAY ---
Indication: Left L3-L5 transforaminal DEEPALI. Intraoperative fluoroscopy provided for 35 seconds. 5 digital spot image submitted for interpretation demonstrates posterior needle tips projecting over the expected left L3 and L4 nerve roots. Small amount of contrast injected for needle tip placement. Correlate with intraoperative findings/report.
--- NOTE | 2021-12-17 17:46 | XRAY ---
35 seconds of fluoroscopy was used in surgery for a left L3-L5 transforaminal DEEPALI.
== END 2021-12-17 10:10 | disposition home or self-care (01) ==
LOC: SDC-PAIN 08:32
PROVIDERS: ATTEND Psychiatry & Neurology Pain Medicine
DX: M54.16 Radiculopathy, lumbar region (principal); E11.9 Type 2 diabetes mellitus without complications; Z79.899 Other long term (current) drug therapy
CPT/HCPCS: 64483; 64484; 72100; 77003; 82947; J1030; J2704; Q9966

== ENCOUNTER 2022-01-07 10:26 | Day surgery (SDC) | payer MEDICARE ==
[2022-01-07] MEDS ORDERED: LIDOCAINE HCL 1% 50 MG/5 ML VL PF IJ ONE (10:27)
[2022-01-07] MEDS ORDERED: DIPRIVAN 200 MG/20 ML IV ONE (11:39)
[2022-01-07] MEDS ORDERED: Lactated Ringers 1,000 ML IV ONE (14:29)
--- NOTE | 2022-01-07 18:26 | XRAY ---
Indication: Bilateral SI joint injection. Intraoperative fluoroscopy provided for 26 seconds. 2 digital spot image submitted for interpretation demonstrates posterior needle tip projecting over the expected left and right piriformis muscles. Small amount of contrast injected for needle tip placement. Correlate with intraoperative findings/report.
--- NOTE | 2022-01-07 18:30 | XRAY ---
26 seconds of fluoroscopy was used in surgery for a bilateral piriformis injection.
== END 2022-01-07 12:05 | disposition home or self-care (01) ==
LOC: SDC-PAIN 10:26
PROVIDERS: ATTEND Psychiatry & Neurology Pain Medicine
DX: M79.18 Myalgia, other site (principal); E11.9 Type 2 diabetes mellitus without complications; Z79.899 Other long term (current) drug therapy
CPT/HCPCS: 20552; 72170; 77002; 82947; 99100; J2001; J2704; Q9966

== ENCOUNTER 2022-02-04 08:50 | Day surgery (SDC) | payer MEDICARE ==
[2022-02-04] MEDS ORDERED: Decadron 4 MG INJ IV ONE (08:51)
[2022-02-04] MEDS ORDERED: Sodium Chloride 0.9(Preservative Free) 10 ML IJ ONE (08:51)
[2022-02-04] MEDS ORDERED: LIDOCAINE HCL 1% 50 MG/5 ML VL PF IJ ONE (08:51)
[2022-02-04] MEDS ORDERED: Depo-Medrol 40 MG/ML IM ONE (08:51)
[2022-02-04] MEDS ORDERED: DIPRIVAN 200 MG/20 ML IV ONE (10:36)
[2022-02-04] MEDS ORDERED: Lactated Ringers 1,000 ML IV ONE (11:26)
--- NOTE | 2022-02-04 12:15 | XRAY ---
Indication: Right piriformis injection. Intraoperative fluoroscopy provided for 10 seconds. Single digital spot image submitted for interpretation demonstrates posterior needle tip projecting over the expected right piriformis muscle. Small amount of contrast injected for needle tip placement. Correlate with intraoperative findings/report.
--- NOTE | 2022-02-04 12:15 | XRAY ---
Indication: Right L3-L5 transforaminal DEEPALI. Intraoperative fluoroscopy provided for 61 seconds. 6 digital spot image submitted for interpretation demonstrates posterior needle tips projecting over the expected right L3 and L4 nerve roots. Small amount of contrast injected for needle tip placement. Correlate with intraoperative findings/report.
--- NOTE | 2022-02-04 12:26 | XRAY ---
61 seconds of fluoroscopy was used in surgery for a right L3-L5 transforaminal DEEPALI.
--- NOTE | 2022-02-04 12:26 | XRAY ---
10 seconds of fluoroscopy was used in surgery for a right piriformis injection.
== END 2022-02-04 11:05 | disposition home or self-care (01) ==
LOC: SDC-PAIN 08:50
PROVIDERS: ATTEND Psychiatry & Neurology Pain Medicine
DX: M54.16 Radiculopathy, lumbar region (principal); Z79.899 Other long term (current) drug therapy; E11.9 Type 2 diabetes mellitus without complications; M79.18 Myalgia, other site
CPT/HCPCS: 20552; 64483; 64484; 72100; 72170; 77002; 77003; 82947; J1030; J1100; J2001; J2704; Q9966

== ENCOUNTER 2022-05-06 08:52 | Day surgery (SDC) | payer MEDICARE ==
[2022-05-06] MEDS ORDERED: Depo-Medrol 40 MG/ML IM ONE (08:53)
[2022-05-06] MEDS ORDERED: LIDOCAINE HCL 1% 50 MG/5 ML VL PF IJ ONE (08:53)
[2022-05-06] MEDS ORDERED: Decadron 4 MG INJ IV ONE (08:53)
[2022-05-06] MEDS ORDERED: Sodium Chloride 0.9(Preservative Free) 10 ML IJ ONE (08:53)
[2022-05-06] MEDS ORDERED: Reglan 10 MG/2 ML ONE (09:46)
[2022-05-06] MEDS ORDERED: Pepcid 20 MG VIAL IV ONE (09:46)
[2022-05-06] MEDS ORDERED: DIPRIVAN 200 MG/20 ML IV ONE (10:51)
[2022-05-06] MEDS ORDERED: Lactated Ringers 1,000 ML IV ONE (11:36)
--- NOTE | 2022-05-06 12:23 | XRAY ---
Indication: Right L3-L5 transforaminal DEEPALI. Intraoperative fluoroscopy provided for 40 seconds. 5 digital spot image submitted for interpretation demonstrates posterior needle tips projecting over the expected right L3 and L4 nerve roots. Small amount of contrast injected for needle tip placement. Correlate with intraoperative findings/report.
--- NOTE | 2022-05-06 12:23 | XRAY ---
Indication: Right piriformis injection. Intraoperative fluoroscopy provided for 23 seconds. Single digital spot image submitted for interpretation demonstrates posterior needle tip projecting over the expected right piriformis muscle. Small amount of contrast injected for needle tip placement. Correlate with intraoperative findings/report.
--- NOTE | 2022-05-06 12:25 | XRAY ---
40 seconds of fluoroscopy was used in surgery for a right L3-L5 transforaminal DEEPALI.
--- NOTE | 2022-05-06 12:25 | XRAY ---
23 seconds of fluoroscopy was used in surgery for a right piriformis muscle injection.
== END 2022-05-06 11:35 | disposition home or self-care (01) ==
LOC: SDC-PAIN 08:52
PROVIDERS: ATTEND Psychiatry & Neurology Pain Medicine
DX: M54.16 Radiculopathy, lumbar region (principal); M79.18 Myalgia, other site; E11.9 Type 2 diabetes mellitus without complications; Z79.899 Other long term (current) drug therapy
CPT/HCPCS: 20552; 64483; 64484; 72100; 72170; 77002; 77003; 82947; J1030; J1100; J2001; J2704; Q9966

== ENCOUNTER 2022-07-29 08:22 | Day surgery (SDC) | payer MEDICARE ==
[2022-07-29] MEDS ORDERED: Decadron 4 MG INJ IV ONE (08:23)
[2022-07-29] MEDS ORDERED: LIDOCAINE HCL 1% 50 MG/5 ML VL PF IJ ONE (08:23)
[2022-07-29] MEDS ORDERED: Depo-Medrol 40 MG/ML IM ONE (08:23)
[2022-07-29] MEDS ORDERED: Sodium Chloride 0.9(Preservative Free) 10 ML IJ ONE (08:23)
[2022-07-29] MEDS ORDERED: Pepcid 20 MG VIAL IV ONE (08:50)
[2022-07-29] MEDS ORDERED: Reglan 10 MG/2 ML ONE (08:50)
[2022-07-29] MEDS ORDERED: DIPRIVAN 200 MG/20 ML IV ONE (09:38)
[2022-07-29] MEDS ORDERED: Xylocaine-Mpf 2% 5 Ml Vial ONE (10:12)
[2022-07-29] MEDS ORDERED: Lactated Ringers 1,000 ML IV ONE (10:37)
--- NOTE | 2022-07-29 12:14 | XRAY ---
Indication: Left piriformis injection. Intraoperative fluoroscopy provided for 11 seconds. Single digital spot image submitted for interpretation demonstrates posterior needle tip projecting over the expected left piriformis muscle. Small amount of contrast injected for needle tip placement. Correlate with intraoperative findings/report.
--- NOTE | 2022-07-29 12:14 | XRAY ---
Indication: Left L3-L5 transforaminal DEEPALI. Intraoperative fluoroscopy provided for 31 seconds. 4 digital spot image submitted for interpretation demonstrates posterior needle tips projecting over the expected left L3 and L4 nerve roots. Small amount of contrast injected for needle tip placement. Correlate with intraoperative findings/report.
--- NOTE | 2022-07-29 12:14 | XRAY ---
31 seconds of fluoroscopy was used in surgery for a left L3-L5 transforaminal DEEPALI.
--- NOTE | 2022-07-29 12:15 | XRAY ---
11 seconds of fluoroscopy was used in surgery for a left piriformis injection.
== END 2022-07-29 10:40 | disposition home or self-care (01) ==
LOC: SDC-PAIN 08:22
PROVIDERS: ATTEND Psychiatry & Neurology Pain Medicine
DX: M54.16 Radiculopathy, lumbar region (principal); M79.18 Myalgia, other site; E11.9 Type 2 diabetes mellitus without complications; Z79.899 Other long term (current) drug therapy
CPT/HCPCS: 20552; 64483; 64484; 72100; 72170; 77002; 77003; 82947; 99100; J1030; J1100; J2001; J2704; Q9966

== ENCOUNTER 2022-11-04 11:10 | Day surgery (SDC) | payer MEDICARE ==
[2022-11-04] MEDS ORDERED: LIDOCAINE HCL 1% 50 MG/5 ML VL PF IJ ONE (11:11)
[2022-11-04] MEDS ORDERED: Depo-Medrol 40 MG/ML IM ONE (11:11)
[2022-11-04] MEDS ORDERED: Sodium Chloride 0.9(Preservative Free) 10 ML IJ ONE (11:11)
[2022-11-04] MEDS ORDERED: Decadron 4 MG INJ IV ONE (11:11)
[2022-11-04] MEDS ORDERED: Reglan 10 MG/2 ML ONE (12:00)
[2022-11-04] MEDS ORDERED: Pepcid 20 MG VIAL IV ONE (12:00)
[2022-11-04] MEDS ORDERED: DIPRIVAN 200 MG/20 ML IV ONE ×2 (13:39→14:50)
[2022-11-04] MEDS ORDERED: Lactated Ringers 1,000 ML IV ONE (14:43)
--- NOTE | 2022-11-04 18:41 | XRAY ---
Indication: Right L3-L5 transforaminal DEEPALI. Intraoperative fluoroscopy provided for 29 seconds. 4 digital spot image submitted for interpretation demonstrates posterior needle tip projecting over the expected right L3 and L4 nerve roots. Small amount of contrast injected for needle tip placement. Correlate with intraoperative findings/report.
--- NOTE | 2022-11-04 18:44 | XRAY ---
Indication: Right piriformis injection. Intraoperative fluoroscopy provided for 16 seconds. Single digital spot image submitted for interpretation demonstrates posterior needle tip projecting over the expected right piriformis muscle. Small amount of contrast injected for needle tip placement. Correlate with intraoperative findings/report.
--- NOTE | 2022-11-04 18:56 | XRAY ---
16 seconds of fluoroscopy was used in surgery for a right piriformis injection.
--- NOTE | 2022-11-04 18:56 | XRAY ---
29 seconds of fluoroscopy was used in surgery for a right L3-L5 transforaminal DEEPALI.
== END 2022-11-04 14:15 | disposition home or self-care (01) ==
LOC: SDC-PAIN 11:10
PROVIDERS: ATTEND Psychiatry & Neurology Pain Medicine
DX: M54.16 Radiculopathy, lumbar region (principal); M79.18 Myalgia, other site; E11.9 Type 2 diabetes mellitus without complications; Z79.899 Other long term (current) drug therapy
CPT/HCPCS: 20552; 64483; 64484; 72100; 72170; 77002; 77003; 82947; 99100; J1030; J1100; J2001; J2704; Q9966

== ENCOUNTER 2022-12-16 08:36 | Day surgery (SDC) | payer MEDICARE ==
[2022-12-16] MEDS ORDERED: LIDOCAINE HCL 1% 50 MG/5 ML VL PF IJ ONE (08:37)
[2022-12-16] MEDS ORDERED: Sensorcaine 0.25% 10 ML IJ ONE (08:37)
[2022-12-16] MEDS ORDERED: DIPRIVAN 200 MG/20 ML IV ONE (10:08)
--- NOTE | 2022-12-16 10:31 | XRAY ---
Indication: Right lumbar sympathetic nerve block. Intraoperative fluoroscopy provided for 38 seconds. 3 digital spot images submitted for interpretation demonstrate right posterior needle tip projecting anterior to a mid lumbar segment, presumed L2. Small amount of contrast injected for needle tip placement. Correlate with intraoperative findings/report.
--- NOTE | 2022-12-16 11:53 | XRAY ---
38 seconds of fluoroscopy was used in surgery for a right lumbar sympathetic nerve block.
[2022-12-16] MEDS ORDERED: Lactated Ringers 1,000 ML IV ONE (13:34)
== END 2022-12-16 10:36 | disposition home or self-care (01) ==
LOC: SDC-PAIN 08:36
PROVIDERS: ATTEND Psychiatry & Neurology Pain Medicine
DX: G90.529 Complex regional pain syndrome I of unspecified lower limb (principal); E11.9 Type 2 diabetes mellitus without complications; Z79.899 Other long term (current) drug therapy
CPT/HCPCS: 64520; 72100; 77002; 82947; 99100; J2001; J2704; Q9966

== ENCOUNTER 2023-01-27 11:33 | Emergency (ER) | payer MEDICARE ==
[2023-01-27 11:52] VITALS: PULSE 80; TEMP 97.9
[2023-01-27 12:47] LABS: BASOPHIL % 0.2 % (0.0-0.4); Basophil (Absolute #) 0.01 x10^3/uL (0-0.4); Eosinophil % 1.4 % (0.00-5.0); Eosinophil (Absolute #) 0.09 x10^3/uL (0-0.5); Hematocrit 42.5 % (42-50); Hemoglobin 13.5 g/dL (12.5-18.0); IMMATURE GRAN # 0.02 x10^3u/L (0.00-0.03); IMMATURE GRAN % 0.3 % (0.00-0.4); Lymphocyte (Absolute #) 1.18 x10^3/uL (1.0-4.6); Lymphocytes % 18.5 % (24.0-44.0); Mean Cell Volume 99.8 fL (78-100); Mean Corpuscular Hemoglobin 31.7 pg (26-32); Mean Corpuscular Hgb Concent. 31.8 g/dL (32-36); Monocyte (Absolute #) 0.77 x10^3/uL (0.0-1.3); Monocytes % 12.1 % (0.0-12.0); Neutrophil % 67.5 % (36.0-66.0); Platelet Count 152 x10^3/uL (150-450); Red Blood Count 4.26 x10^6/uL (4.1-5.6); Red Cell Distribution Width 14.8 % (11.5-14.0); White Blood Count 6.4 x10^3/uL (4.0-10.5)
[2023-01-27 13:06] LABS: ALBUMIN 3.7 g/dL (3.5-5.0); ALKALINE PHOSPHATASE 94 U/L (38-126); AMYLASE 48 U/L (30-110); BLOOD UREA NITROGEN 21 mg/dL (9-20); CHLORIDE 101 mmol/L (98-107); Calcium 8.8 mg/dL (8.4-10.2); Carbon Dioxide 31 mmol/L (22-30); Creatinine 1 0.92 mg/dL (0.66-1.25); EST GLOMERULAR FILTRATION RATE > 60.0 ML/MIN; Glucose 138 mg/dL (74-106); LIPASE 26 U/L (23-300); Potassium 3.7 mmol/L (3.5-5.1); SGOT/AST 23 U/L (17-59); SGPT/ALT 23 U/L (0-50); SODIUM 141 mmol/L (137-145); Total Protein 6.5 g/dL (6.3-8.2)
[2023-01-27 13:10] VITALS: BP 118/61
[2023-01-27 13:14] VITALS: O2SAT 94
--- NOTE | 2023-01-27 13:14 | ERPHSYRPT ---
- History of Present Illness Historian: patient Exam Limitations: no limitations Patient Subjective Stated Complaint: Pt c/o of left flank pain and last month pt did have 2 kidney stones that were obstructing and causing hydronephrosis, stones were 1 and 3 mm Triage Nursing Assessment: Pt brought to the ER by his daughter, kay barrios, rates pain 6/10, pt does get injections in his back by Dr. Campbell so he is unsure if the pain is disc related or kidney stone related, pulses normal, denies pain with palpatation, denies N&V, no difficulties with BM, skin n/w/d, doesn't appear to be in any distress Physician History: 72 yo WM w L flank pain x 1 day. pain is 3/10 but has been up to a 6/10. Pt states that "it feels like a kidney stone". He denies N/V/D/melena/hematochezia/dysuria/hematuria/fever/chest pain. Timing/Duration: yesterday Activities at Onset: rest Quality: other (Pain) Abdominal Pain Onset Location: flank (R flank) Pain Radiation: no radiation Severity of Pain-Max: moderate Severity of Pain-Current: mild Associated Symptoms: denies symptoms Previous symptoms: same symptoms as today Allergies/Adverse Reactions: azithromycin [From Zithromax] Adverse Reaction (Verified 01/27/23 11:52) chlorzoxazone Adverse Reaction (Verified 01/27/23 11:52) clarithromycin [From Biaxin] Adverse Reaction (Verified 01/27/23 11:52) diclofenac sodium [From Arthrotec] Adverse Reaction (Verified 01/27/23 11:52) esomeprazole [From Nexium] Adverse Reaction (Verified 01/27/23 11:53) ezetimibe [From Vytorin] Adverse Reaction (Verified 01/27/23 11:52) fluticasone propionate [From Advair Diskus] Adverse Reaction (Verified 01/27/23 11:52) misoprostol [From Arthrotec] Adverse Reaction (Verified 01/27/23 11:52) oxycodone Adverse Reaction (Verified 01/27/23 11:52) Penicillins Adverse Reaction (Verified 01/27/23 11:52) pravastatin sodium [From Pravachol] Adverse Reaction (Verified 01/27/23 11:52) rosuvastatin calcium [From Crestor] Adverse Reaction (Verified 01/27/23 11:52) salmeterol xinafoate [From Advair Diskus] Adverse Reaction (Verified 01/27/23 11:52) simvastatin [From Vytorin] Adverse Reaction (Verified 01/27/23 11:52) Home Medications: Aspirin 81 gm Chew [Baby Aspirin 81 mg Chew] 81 mg PO DAILY 07/02/15 [History] Famotidine 20 mg [Pepcid 20 MG] 20 mg PO DAILY 07/02/15 [History] Gabapentin [Neurontin] 600 mg PO QID 07/02/15 [History] Glimepiride 4 mg [Amaryl 4 mg] 4 mg PO BID 07/02/15 [History] Metformin HCl 500 mg [Glucophage 500 MG] 1,000 mg PO BID 07/02/15 [History] Pioglitazone HCl [Actos] 45 mg PO DAILY 07/02/15 [History] Fluticasone Propionate [Flonase Nasal] 0 gm NS UD PRN 01/27/23 [History] Losartan/Hydrochlorothiazide [Losartan-Hctz 50-12.5 mg Tab] 1 each PO DAILY 01/27/23 [History] Magnesium Citrate and Oxide [Magnesium] 250 mg PO DAILY 01/27/23 [History] Montelukast Sodium 10 mg [Singulair 10 MG] 10 mg PO DAILY 01/27/23 [History] Hx Tetanus, Diphtheria Vaccination/Date Given: Yes Hx Influenza Vaccination/Date Given: Yes (01/19/2023) Hx Pneumococcal Vaccination/Date Given: Yes Immunizations Up to Date: Yes Travel Risk - International Travel Have you traveled outside of the country in past 3 weeks: No - Coronavirus Screening Are you exhibiting any of the following symptoms?: No Close contact with a COVID-19 positive Pt in past 14-21 Days: No - Vaccine Status Have you recieved a Covid-19 vaccination: Yes Human Resources Professional: [employer] - Vaccination Dates Date of 2cond Vaccination (if applicable): 2020 - Review of Systems Constitutional: No Symptoms Eyes: No Symptoms Ears, Nose, & Throat: No Symptoms Respiratory: No Symptoms Cardiac: No Symptoms, Orthopnea Genitourinary Symptoms: No Symptoms, Flank Pain Musculoskeletal: No Symptoms Skin: No Symptoms Neurological: No Symptoms Psychological: No Symptoms Endocrine: No Symptoms Hematologic/Lymphatic: No Symptoms Immunological/Allergic: No Symptoms - Past Medical History Pertinent Past Medical History: Yes Neurological History: No Pertinent History ENT History: No Pertinent History Cardiac History: High Cholesterol, Hypertension, Other Respiratory History: Other Endocrine Medical History: Diabetes Type I Musculoskeletal History: Arthritis GI Medical History: Hernia, Other History: Other Psycho-Social History: No Pertinent History Male Reproductive Disorders: No Pertinent History Other Medical History: kidney stones, acid reflux, right knee torn minscus - Past Surgical History Past Surgical History: Yes Neuro Surgical History: No Pertinent History Cardiac: Cardiac Catheterization Respiratory: No Pertinent History Gastrointestinal: No Pertinent History Genitourinary: No Pertinent History Musculoskeletal: Other Male Surgical History: No Pertinent History Other Surgical History: Right knee orthorscopy, lumbar epideral injections, carpal tunnel surgery, rotor cuff repair - Social History Smoking Status: Never smoker Exposure to second hand smoke: No Drug Use: none Patient Lives Alone: No () Significant Family History: no pertinent family hx - Nursing Vital Signs Nursing Vital Signs: Initial Vital Signs Temperature 97.9 F 01/27/23 11:41 Pulse Rate 80 01/27/23 11:41 Blood Pressure 110/59 01/27/23 11:41 O2 Sat by Pulse Oximetry 98 01/27/23 11:41 Pain Scale Pain Intensity 6 WNL - Physical Exam General Appearance: no apparent distress Eye Exam: PERRL/EOMI, eyes nml inspection Ears, Nose, Throat Exam: normal ENT inspection, TMs normal, pharynx normal, moist mucous membranes Neck Exam: normal inspection, non-tender, supple, full range of motion, No meningismus, No mass, No Brudzinski, No Kernig's Respiratory Exam: normal breath sounds, lungs clear, airway intact Cardiovascular Exam: regular rate/rhythm, normal heart sounds, normal peripheral pulses, capillary refill <2 sec, No murmur Gastrointestinal/Abdomen Exam: soft, normal bowel sounds, No tenderness, No distention Back Exam: normal inspection, normal range of motion, No CVA tenderness, No vertebral tenderness Extremity Exam: normal inspection, normal range of motion Neurologic Exam: alert, oriented x 3, cooperative, 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, normal mood/affect, nml cerebellar function, nml station & gait, sensation nml Skin Exam: normal color Lymphatic Exam: adenopathy SpO2 Interpretation: normal SpO2: 94 O2 Delivery: Room Air - Course Nursing assessment & vital signs reviewed: Yes - CT Exams Abdomen/Pelvis CT Interpretation: Discussed w/radiologist (Fecal stasis/chronic findings) Ordered Tests: Active Orders 24 hr Category Date Time Status ABDOMEN AND PELVIS W/0 CONTRAS [CT] Stat Exams 01/27/23 12:15 Completed AMYLASE Stat Lab 01/27/23 12:40 Completed CBC W DIFF Stat Lab 01/27/23 12:30 Completed CMP Stat Lab 01/27/23 12:40 Completed LIPASE Stat Lab 01/27/23 12:40 Completed TROPONIN Q4H Lab 01/27/23 12:15 Completed UA W/RFX UR CULTURE Stat Lab 01/27/23 13:28 Completed Lab/Rad Data: Laboratory Result Diagrams 01/27/23 12:30 01/27/23 12:40 Laboratory Results 01/27/23 01/27/23 01/27/23 Range/Units 13:28 12:40 12:30 WBC 6.4 (4.0-10.5) x10^3/uL RBC 4.26 (4.1-5.6) x10^6/uL Hgb 13.5 (12.5-18.0) g/dL Hct 42.5 (42-50) % MCV 99.8 (78-100) fL MCH 31.7 (26-32) pg MCHC 31.8 L (32-36) g/dL RDW 14.8 H (11.5-14.0) % Plt Count 152 (150-450) x10^3/uL MPV 11.0 (7.5-11.0) fL Gran % 67.5 H (36.0-66.0) % Immature Gran % (Auto) 0.3 (0.00-0.4) % Nucleat RBC Rel Count 0.0 (0.00-0.1) % Eos # (Auto) 0.09 (0-0.5) x10^3/uL Immature Gran # (Auto) 0.02 (0.00-0.03) x10^3u/L Absolute Lymphs (auto) 1.18 (1.0-4.6) x10^3/uL Absolute Monos (auto) 0.77 (0.0-1.3) x10^3/uL Absolute Nucleated RBC 0.00 (0.00-0.01) x10^3u/L Lymphocytes % 18.5 L (24.0-44.0) % Monocytes % 12.1 H (0.0-12.0) % Eosinophils % 1.4 (0.00-5.0) % Basophils % 0.2 (0.0-0.4) % Absolute Granulocytes 4.30 (1.4-6.9) x10^3/uL Basophils # 0.01 (0-0.4) x10^3/uL Sodium 141 (137-145) mmol/L Potassium 3.7 (3.5-5.1) mmol/L Chloride 101 (98-107) mmol/L Carbon Dioxide 31 H (22-30) mmol/L Anion Gap 13.0 (5-15) MEQ/L BUN 21 H (9-20) mg/dL Creatinine 0.92 (0.66-1.25) mg/dL Estimated GFR > 60.0 ML/MIN Glucose 138 H (74-106) mg/dL Calcium 8.8 (8.4-10.2) mg/dL Total Bilirubin 0.80 (0.2-1.3) mg/dL AST 23 (17-59) U/L ALT 23 (0-50) U/L Alkaline Phosphatase 94 (38-126) U/L Troponin I (0.000-0.034) ng/mL Serum Total Protein 6.5 (6.3-8.2) g/dL Albumin 3.7 (3.5-5.0) g/dL Amylase 48 (30-110) U/L Lipase 26 (23-300) U/L Urine Color Yellow (Yellow) Urine Appearance Clear (Clear) Urine pH 7.0 (4.6-8.0) Ur Specific Reliance 1.015 (1.005-1.030) Urine Protein Negative (Negative) Urine Glucose (UA) Negative (Negative) mg/dL Urine Ketones Negative (Negative) Urine Blood Negative (Negative) Urine Nitrite Negative (Negative) Urine Bilirubin Negative (Negative) Urine Urobilinogen 1.0 A (0.2) mg/dL Ur Leukocyte Esterase Negative (Negative) U Hyaline Cast (Auto) NONE SEEN (0-2) /LPF Urine Microscopic RBC 0-2 (0-5) /HPF Urine Microscopic WBC 0-2 (0-5) /HPF Ur Epithelial Cells None Seen (None Seen) /HPF Urine Bacteria None Seen (None Seen) /HPF Urine Culture Reflexed NO (NO) 01/27/23 Range/Units 12:15 WBC (4.0-10.5) x10^3/uL RBC (4.1-5.6) x10^6/uL Hgb (12.5-18.0) g/dL Hct (42-50) % MCV (78-100) fL MCH (26-32) pg MCHC (32-36) g/dL RDW (11.5-14.0) % Plt Count (150-450) x10^3/uL MPV (7.5-11.0) fL Gran % (36.0-66.0) % Immature Gran % (Auto) (0.00-0.4) % Nucleat RBC Rel Count (0.00-0.1) % Eos # (Auto) (0-0.5) x10^3/uL Immature Gran # (Auto) (0.00-0.03) x10^3u/L Absolute Lymphs (auto) (1.0-4.6) x10^3/uL Absolute Monos (auto) (0.0-1.3) x10^3/uL Absolute Nucleated RBC (0.00-0.01) x10^3u/L Lymphocytes % (24.0-44.0) % Monocytes % (0.0-12.0) % Eosinophils % (0.00-5.0) % Basophils % (0.0-0.4) % Absolute Granulocytes (1.4-6.9) x10^3/uL Basophils # (0-0.4) x10^3/uL Sodium (137-145) mmol/L Potassium (3.5-5.1) mmol/L Chloride (98-107) mmol/L Carbon Dioxide (22-30) mmol/L Anion Gap (5-15) MEQ/L BUN (9-20) mg/dL Creatinine (0.66-1.25) mg/dL Estimated GFR ML/MIN Glucose (74-106) mg/dL Calcium (8.4-10.2) mg/dL Total Bilirubin (0.2-1.3) mg/dL AST (17-59) U/L ALT (0-50) U/L Alkaline Phosphatase (38-126) U/L Troponin I < 0.012 (0.000-0.034) ng/mL Serum Total Protein (6.3-8.2) g/dL Albumin (3.5-5.0) g/dL Amylase (30-110) U/L Lipase (23-300) U/L Urine Color (Yellow) Urine Appearance (Clear) Urine pH (4.6-8.0) Ur Specific Reliance (1.005-1.030) Urine Protein (Negative) Urine Glucose (UA) (Negative) mg/dL Urine Ketones (Negative) Urine Blood (Negative) Urine Nitrite (Negative) Urine Bilirubin (Negative) Urine Urobilinogen (0.2) mg/dL Ur Leukocyte Esterase (Negative) U Hyaline Cast (Auto) (0-2) /LPF Urine Microscopic RBC (0-5) /HPF Urine Microscopic WBC (0-5) /HPF Ur Epithelial Cells (None Seen) /HPF Urine Bacteria (None Seen) /HPF Urine Culture Reflexed (NO) - Progress Progress Note: 01/27/23 19:49 Nursing note and vital signs reviewed No food or housing insecurities noted All lab results reviewed and shared w pt CT results reviewed and shared w pt Pt refused all pain meds during stay Pt advised to f/u w his PCP and to strain all urine Etiology of pain unclear Pt advised to return to ER for increasing pain or temperature greater than 100.5 Counseled pt/family regarding: lab results, diagnosis, need for follow-up, rad results Medical Desision Making - Diagnostic Testing Diagnostic test were ordered, analyzed, and reviewed by me: Yes Radiological Interpretation: Reviewed by me, Discussed w/ radiologist - Risk of complications Low Risk: Low risk of morbidity from additional dx testing or treatment - Departure Departure Disposition: Home Clinical Impression: Flank pain Condition: Stable Critical Care Time: No Referrals: AMY LORENZO MD [Primary Care Provider] - Follow up/PCP as directed Instructions: Flank Pain Additional Instructions: Strain all urine Tylenol as needed for pain Return to ER for increasing pain or temperature greater than 100.5
[2023-01-27 13:53] LABS: Appearance Clear (Clear); Bacteria None Seen /HPF (None Seen); Bilirubin Negative (Negative); Blood Negative (Negative); Epithelial Cells None Seen /HPF (None Seen); Glucose, Urine Negative (Negative); Hyaline Casts NONE SEEN /LPF (0-2); Ketones Negative (Negative); Leukocyte Esterase Negative (Negative); Nitrite Negative (Negative); Protein,Urine Dip Negative (Negative); RBC 0-2 /HPF (0-5); Specific Gravity 1.015 (1.005-1.030); WBC 0-2 /HPF (0-5)
--- NOTE | 2023-01-27 13:54 | XRAY ---
Indication: Left flank pain. History kidney stones. Multiple contiguous axial images obtained through the abdomen and pelvis without contrast using renal stone protocol. Comparison: October 23, 2021 Lung bases clear. Heart not enlarged. No renal calculus or evidence for obstructive uropathy in either system. Noncontrasted stomach and bowel loops appear nonobstructed again with normal appendix. Mild scattered colonic fecal debris throughout including rectum. No free fluid/air. Remaining liver, gallbladder, pancreas, spleen, adrenal glands, kidneys, ureters, and near empty urinary bladder are unremarkable for noncontrast exam stable mild aortoiliac calcifications without AAA. Osseous structures intact again with osteopenia and mild/moderate degenerative changes throughout the thoracolumbar spine. Stable moderate-sized fatty umbilical hernia and small fatty left inguinal hernia. Impression: 1. Continued negative renal calculus or evidence for obstructive uropathy. 2. Mild diffuse fecal stasis. 3. Chronic findings including arteriosclerotic disease, chronic bony findings, and fatty umbilical/left inguinal hernias.
[2023-01-27 13:58] LABS: ADD URINE CULTURE? NO (NO)
== END 2023-01-27 14:26 | disposition home or self-care (01) ==
LOC: ED 11:33
DX: R10.9 Unspecified abdominal pain (principal); E78.5 Hyperlipidemia, unspecified; I10 Essential (primary) hypertension; E10.9 Type 1 diabetes mellitus without complications; Z79.84 Long term (current) use of oral hypoglycemic drugs; Z79.899 Other long term (current) drug therapy; Z87.442 Personal history of urinary calculi
CPT/HCPCS: 36415; 74176; 80053; 81001; 82150; 83690; 84484; 85025; 99283

== ENCOUNTER 2023-02-17 10:11 | Day surgery (SDC) | payer MEDICARE ==
[2023-02-17] MEDS ORDERED: BUPIVACAINE 0.5% VIAL IJ ONE (10:12)
[2023-02-17] MEDS ORDERED: Depo-Medrol 40 MG/ML IM ONE (10:12)
[2023-02-17] MEDS ORDERED: DIPRIVAN 200 MG/20 ML IV ONE (11:50)
[2023-02-17] MEDS ORDERED: MORPHINE SULFATE 2 MG INJ ONE (12:20)
--- NOTE | 2023-02-17 14:28 | XRAY ---
Indication: Bilateral SI joint injection. Intraoperative fluoroscopy provided for 22 seconds. 4 digital spot images submitted for interpretation demonstrates posterior needle tip projecting over the left and right SI joint. Correlate with intraoperative findings/report.
[2023-02-17] MEDS ORDERED: Lactated Ringers 1,000 ML IV ONE (14:52)
--- NOTE | 2023-02-17 14:59 | XRAY ---
22 seconds of fluoroscopy was used in surgery for a bilateral sacroiliac joint injection.
== END 2023-02-17 12:43 | disposition home or self-care (01) ==
LOC: SDC-PAIN 10:11
PROVIDERS: ATTEND Psychiatry & Neurology Pain Medicine
DX: M46.1 Sacroiliitis, not elsewhere classified (principal); E11.9 Type 2 diabetes mellitus without complications
CPT/HCPCS: 27096; 72202; 77002; 82947; G0260; 99100; J1030; J2270; J2704

== ENCOUNTER 2023-05-26 08:43 | Day surgery (SDC) | payer MEDICARE ==
[2023-05-26] MEDS ORDERED: Decadron 4 MG INJ IV ONE (08:44)
[2023-05-26] MEDS ORDERED: Sodium Chloride 0.9(Preservative Free) 10 ML IJ ONE (08:44)
[2023-05-26] MEDS ORDERED: XYLOCAINE-MPF 1% 5ML SDV IJ ONE (08:44)
[2023-05-26] MEDS ORDERED: DIPRIVAN 200 MG/20 ML IV ONE (10:54)
[2023-05-26] MEDS ORDERED: Lactated Ringers 1,000 ML IV ONE (12:27)
--- NOTE | 2023-05-26 13:57 | XRAY ---
Indication: Right L3-L5 transforaminal DEEPALI. Intraoperative fluoroscopy provided for 39 seconds. 5 digital spot image submitted for interpretation demonstrates posterior new tips projecting over the expected right L3 and L4 nerve roots. Small amount of contrast injected for needle tip placement. Correlate with intraoperative findings/report.
--- NOTE | 2023-05-26 13:58 | XRAY ---
Indication: Right piriformis injection. Intraoperative fluoroscopy provided for 17 seconds. Single digital spot image submitted for interpretation demonstrates posterior needle tip projecting over right piriformis. Small amount of contrast injected for needle tip placement. Correlate with intraoperative findings/report.
--- NOTE | 2023-05-26 14:09 | XRAY ---
17 seconds of fluoroscopy was used in surgery for a right piriformis injection.
--- NOTE | 2023-05-26 14:09 | XRAY ---
39 seconds of fluoroscopy was used in surgery for a right L3-L5 transforaminal DEEPALI.
== END 2023-05-26 11:40 | disposition home or self-care (01) ==
LOC: SDC-PAIN 08:43
PROVIDERS: ATTEND Psychiatry & Neurology Pain Medicine
DX: M54.16 Radiculopathy, lumbar region (principal); M79.18 Myalgia, other site; E11.9 Type 2 diabetes mellitus without complications; Z79.899 Other long term (current) drug therapy
CPT/HCPCS: 20552; 64483; 64484; 72100; 72170; 77002; 77003; 82947; 99100; J1100; J2704; Q9966

== ENCOUNTER 2023-06-30 08:41 | Day surgery (SDC) | payer MEDICARE ==
[2023-06-30] MEDS ORDERED: Sensorcaine 0.25% 10 ML IJ ONE (08:42)
[2023-06-30] MEDS ORDERED: LIDOCAINE HCL 1% 50 MG/5 ML VL PF IJ ONE (08:42)
[2023-06-30] MEDS ORDERED: DIPRIVAN 200 MG/20 ML IV ONE (10:43)
[2023-06-30] MEDS ORDERED: Lactated Ringers 1,000 ML IV ONE (12:26)
--- NOTE | 2023-06-30 12:53 | XRAY ---
Indication: Right lumbar sympathetic nerve block. Intraoperative fluoroscopy provided for 49 seconds. 7 digital spot image submitted for interpretation demonstrate right posterior needle tip projecting just anterior to L2 vertebral body. Small amount of contrast injected for needle tip placement. Correlate with intraoperative findings/report.
--- NOTE | 2023-06-30 12:59 | XRAY ---
49 seconds of fluoroscopy was used in surgery for a right lumbar sympathetic nerve block.
== END 2023-06-30 11:40 | disposition home or self-care (01) ==
LOC: SDC-PAIN 08:41
PROVIDERS: ATTEND Psychiatry & Neurology Pain Medicine
DX: G90.529 Complex regional pain syndrome I of unspecified lower limb (principal); E11.9 Type 2 diabetes mellitus without complications
CPT/HCPCS: 64520; 72100; 77002; 82947; 99100; J2001; J2704; Q9966

== ENCOUNTER 2023-08-18 09:02 | Day surgery (SDC) | payer MEDICARE ==
[2023-08-18] MEDS ORDERED: BUPIVACAINE 0.5% VIAL IJ ONE (09:03)
[2023-08-18] MEDS ORDERED: Depo-Medrol 40 MG/ML IM ONE (09:03)
[2023-08-18] MEDS ORDERED: Lactated Ringers 1,000 ML IV ONE (10:58)
[2023-08-18] MEDS ORDERED: DIPRIVAN 200 MG/20 ML IV ONE (11:25)
--- NOTE | 2023-08-18 12:59 | XRAY ---
Indication: Bilateral hip injection Intraoperative fluoroscopy provided for 34 seconds. 2 digital spot image submitted for interpretation demonstrates needle tips projecting lateral to the left and right femur necks. Small amount of contrast injected for needle tip placement. Correlate with intraoperative findings/report.
--- NOTE | 2023-08-18 13:21 | XRAY ---
34 seconds of fluoroscopy was used in surgery for a bilateral intra-articular hip injection.
== END 2023-08-18 11:58 | disposition home or self-care (01) ==
LOC: SDC-PAIN 09:02
PROVIDERS: ATTEND Psychiatry & Neurology Pain Medicine
DX: M16.0 Bilateral primary osteoarthritis of hip (principal); E11.9 Type 2 diabetes mellitus without complications
CPT/HCPCS: 20610; 73521; 77002; 82947; J1010; J2704; Q9966

== ENCOUNTER 2023-11-03 08:31 | Day surgery (SDC) | payer MEDICARE ==
[2023-11-03] MEDS ORDERED: LIDOCAINE HCL 1% 50 MG/5 ML VL PF IJ ONE (08:32)
[2023-11-03] MEDS ORDERED: Decadron 4 MG INJ IV ONE (08:32)
[2023-11-03] MEDS ORDERED: Sodium Chloride 0.9(Preservative Free) 10 ML IJ ONE (08:32)
[2023-11-03] MEDS ORDERED: DIPRIVAN 200 MG/20 ML IV ONE (10:04)
--- NOTE | 2023-11-03 11:38 | XRAY ---
Indication: Right piriformis injection. Intraoperative fluoroscopy provided for 10 seconds. Single digital spot image submitted for interpretation demonstrates posterior needle tip projecting over the right piriformis. Small amount of contrast injected for needle tip placement. Correlate with intraoperative findings/report.
--- NOTE | 2023-11-03 11:38 | XRAY ---
Indication: Right L4-S1 transforaminal DEEPALI. Intraoperative fluoroscopy provided for 37 seconds. 4 digital spot images submitted for interpretation demonstrates posterior needle tips projecting over the expected right L4 and L5 nerve roots. Small amount of contrast injected for needle tip placement. Correlate with intraoperative findings/report.
--- NOTE | 2023-11-03 11:41 | XRAY ---
37 seconds of fluoroscopy was used in surgery for a right L4-S1 transforaminal DEEPALI.
--- NOTE | 2023-11-03 11:41 | XRAY ---
10 seconds of fluoroscopy was used in surgery for a right piriformis injection.
[2023-11-03] MEDS ORDERED: Lactated Ringers 1,000 ML IV ONE (12:07)
== END 2023-11-03 10:46 | disposition home or self-care (01) ==
LOC: SDC-PAIN 08:31
PROVIDERS: ATTEND Psychiatry & Neurology Pain Medicine
DX: M54.16 Radiculopathy, lumbar region (principal); M79.18 Myalgia, other site; E11.9 Type 2 diabetes mellitus without complications
CPT/HCPCS: 20552; 64483; 64484; 72100; 72170; 77002; 77003; 82947; 99100; J1100; J2001; J2704; Q9966

== ENCOUNTER 2024-05-24 08:30 | Day surgery (SDC) | payer MEDICARE ==
[2024-05-24] MEDS ORDERED: dexAMETHasone sodium phosphate IJ ONE (08:31)
[2024-05-24] MEDS ORDERED: Sodium Chloride 0.9(Preservative Free) 10 ML IJ ONE (08:31)
[2024-05-24] MEDS ORDERED: LIDOCAINE HCL 1% AMPUL 5 ML IJ ONE (08:31)
[2024-05-24] MEDS ORDERED: propofoL IV ONE ×2 (10:15→10:32)
--- NOTE | 2024-05-24 12:24 | XRAY ---
Indication: Right L4-S1 transforaminal DEEPALI. Intraoperative fluoroscopy provided for 45 seconds. 4 digital spot image submitted for interpretation demonstrates posterior needle tips projecting over expected right L4 and L5 nerve roots. Small amount of contrast injected for needle tip placement. Correlate with intraoperative findings/report.
--- NOTE | 2024-05-24 12:26 | XRAY ---
Indication: Bilateral piriformis injection. Intraoperative fluoroscopy provided for 20 seconds. 3 digital spot image submitted for interpretation demonstrates posterior needle tips projecting over left and right piriformis. Small amount of contrast injected for needle tip placement. Correlate with intraoperative findings/report.
--- NOTE | 2024-05-24 12:49 | XRAY ---
45 seconds of fluoroscopy was used in surgery for a right transforaminal L4-S1 DEEPALI.
--- NOTE | 2024-05-24 12:50 | XRAY ---
20 seconds of fluoroscopy was used in surgery for a bilateral piriformis injection.
== END 2024-05-24 11:20 | disposition home or self-care (01) ==
LOC: SDC-PAIN 08:30
PROVIDERS: ATTEND Psychiatry & Neurology Pain Medicine
DX: M54.16 Radiculopathy, lumbar region (principal); E11.9 Type 2 diabetes mellitus without complications; M79.18 Myalgia, other site
CPT/HCPCS: 20552; 64483; 64484; 72100; 72170; 77002; 77003; 82947; 93005; 99100; J1100; J2704; Q9966

== ENCOUNTER 2024-07-12 09:31 | Day surgery (SDC) | payer MEDICARE ==
[2024-07-12] MEDS ORDERED: Sodium Chloride 0.9(Preservative Free) 10 ML IJ ONE (09:32)
[2024-07-12] MEDS ORDERED: dexAMETHasone sodium phosphate IJ ONE (09:32)
[2024-07-12] MEDS ORDERED: propofoL IV ONE (11:26)
[2024-07-12] MEDS ORDERED: MORPHINE SULFATE 2 MG INJ ONE ×2 (11:49→12:07)
--- NOTE | 2024-07-12 12:54 | XRAY ---
30 seconds of fluoroscopy was used in surgery for a left L4-S1 transforaminal DEEPALI.
--- NOTE | 2024-07-12 12:55 | XRAY ---
Indication: Left L4-S1 transforaminal DEEPALI. Intraoperative fluoroscopy provided for 30 seconds. 3 digital spot images submitted for interpretation demonstrates posterior needle tips projecting over expected left L4 and L5 nerve roots. Small amount of contrast injected for needle tip placement. Correlate with intraoperative findings/report.
== END 2024-07-12 12:06 | disposition home or self-care (01) ==
LOC: SDC-PAIN 09:31
PROVIDERS: ATTEND Psychiatry & Neurology Pain Medicine
DX: M54.16 Radiculopathy, lumbar region (principal); E11.9 Type 2 diabetes mellitus without complications
CPT/HCPCS: 64483; 64484; 72100; 77003; 82947; J1100; J2270; J2704

== ENCOUNTER 2024-07-26 06:51 | Day surgery (SDC) | payer MEDICARE ==
[2024-07-26] MEDS ORDERED: dexAMETHasone sodium phosphate IJ ONE (06:52)
[2024-07-26] MEDS ORDERED: LIDOCAINE HCL 1% AMPUL 5 ML IJ ONE (06:52)
[2024-07-26] MEDS ORDERED: propofoL IV ONE (08:34)
[2024-07-26] MEDS ORDERED: Sodium Chloride 0.9% 250 ML 500 ML IV ONE (09:18)
--- NOTE | 2024-07-26 11:45 | XRAY ---
Indication: Left piriformis injection. Intraoperative fluoroscopy provided for 25 seconds. Single digital spot image submitted for interpretation demonstrate posterior needle tip projecting over left piriformis. Small amount of contrast injected for needle tip placement. Correlate with intraoperative findings/report.
--- NOTE | 2024-07-26 12:58 | XRAY ---
25 seconds of fluoroscopy was used in surgery for a left piriformis injection.
== END 2024-07-26 09:32 | disposition home or self-care (01) ==
LOC: SDC-PAIN 06:51
PROVIDERS: ATTEND Psychiatry & Neurology Pain Medicine
DX: M79.18 Myalgia, other site (principal); E11.9 Type 2 diabetes mellitus without complications
CPT/HCPCS: 20552; 72170; 77002; 82947; 99100; J1100; J2704; Q9966